=== PATIENT | female | born 1945 | race Caucasian/White ===

== ENCOUNTER → 2018-02-19 08:27 | Outpatient (CLI) | payer MEDICARE, OTHER, SELFPAY | PROVIDERS: Family Provider Internal Medicine; PCP Internal Medicine; Visit Provider Internal Medicine | DX: M54.9 Dorsalgia, unspecified (principal); G89.29 Other chronic pain; M25.552 Pain in left hip; Z85.038 Personal history of other malignant neoplasm of large intestine ==

== ENCOUNTER → 2018-02-20 10:22 | Outpatient (CLI) | payer MEDICARE, OTHER, SELFPAY ==
--- NOTE | 2018-02-20 10:28 | RAD_ITS ---
STUDY: X-RAY - LUMBAR SPINE REASON FOR EXAM: Female, 73 years old. TECHNIQUE: 5 view(s) of the lumbar spine were obtained. COMPARISON: None FINDINGS: Normal lumbar lordosis. There is a levoscoliosis of the lumbar spine. There is a normal alignment of the vertebrae. There is diffuse demineralization with multi-level endplate spondylosis. There is multi-level degenerative disc disease with multi-level disc space narrowing. There is a new compression fracture of T12. There is an old compression fracture of L1. There is atherosclerotic calcification of the abdominal aorta without a demonstrated aneurysm. RAD/L/S Spine Min 4 Views IMPRESSION: Degenerative changes of the spine, as detailed above. There is a new compression fracture of T12. Electronically Signed: Joel Gardner MD at 10:45 EDT Tel , Service support ,
--- NOTE | 2018-02-20 10:29 | RAD_ITS ---
STUDY: X-RAY - PELVIS AND LEFT HIP REASON FOR EXAM: Female, 73 years old. PAIN X1.5 YRS S/P FALLING DOWN STAIRS TECHNIQUE: Radiological exam, hip, unilateral, with pelvis when performed; 2 or 3 views. COMPARISON: None. FINDINGS: There is a non-specific bowel gas pattern. Normal visualized soft tissue structures. There is diffuse demineralization of the osseous structures. There is narrowing with cortical sclerosis and osteophyte formation of the sacroiliac joint consistent with degenerative osteoarthritic changes. Normal bilateral superior and inferior pubic rami. There are degenerative changes of the pubic symphysis with articular narrowing and sclerosis. Normal bilateral ischial tuberosities. There are osteoarthritic changes of the femoral head with marginal osteophyte formation. Normal acetabulum. There is severe articular joint space narrowing of the hip. RAD/Hip 2-3 Views with Pelvis IMPRESSION: There are degenerative changes and demineralization of the pelvis. Advanced degenerative arthrosis in the left hip. Electronically Signed: Joel Gardner MD at 10:52 EDT Tel , Service support ,
== END ==
PROVIDERS: Family Provider Internal Medicine; PCP Internal Medicine; Visit Provider Internal Medicine
DX: M54.9 Dorsalgia, unspecified (principal); G89.29 Other chronic pain; M25.552 Pain in left hip
CPT/HCPCS: 72110; 73502

== ENCOUNTER 2018-03-17 10:45 | Day surgery (SDC) | payer MEDICARE, OTHER, SELFPAY ==
[2018-03-17 11:09] VITALS: BP 158/83; PULSE 70; RESP 16; TEMP 36.4; O2SAT 98; BMI 23.7
--- NOTE | 2018-03-17 12:00 | RAD_ITS ---
CLINICAL HISTORY: Female, 73 years old. Back pain. PROCEDURE: KYPHOPLASTY - T12 Imaging provided for kyphoplasty of the T12 vertebrae. RAD/Thoracic Spine 2 Views IMPRESSION: Imaging provided for kyphoplasty of the T12 vertebrae. Electronically Signed: Tristen Bahena MD at 13:45 EDT Tel [phone], Service support ,
--- NOTE | 2018-03-17 12:00 | BON_PTH ---
PATIENT: GILL HUMMEL LOC: [facility] [place] U#:[id number] AGE/SX: 73/F ROOM: RE03/17/[address]: Dr. Bernardino Thompson MD : 1945 BED: DIS: 03/17/2018 SPEC #: [id number] RECD: 03/17/18 15:42 STATUS: RA FAINA #: [id number] GLORY: 03/17/18 12:[address]: Bernardino Thompson DEPT: SURGICAL PATHOLOGY RECD BY: Nelson Simmons ENTERED: 03/18/18 07:57 SP TYPE: Bone OTHR DR: Dr. America Torres DO Tissues: Vertebra, NOS Procedures: Decalcification bone/plaque Surgery Specimen Level V HEADER OPERATION: Kyphoplasty T12 PRE-OP DIAGNOSIS: Compression fracture T12 TISSUE SUBMITTED: Bone biopsy T12 MICROSCOPIC DIAGNOSIS T12 bone, core biopsy: Consistent with organizing fracture site. No evidence of malignancy. AM:blanquita 03/19/18 MICROSCOPIC DESCRIPTION Slides are reviewed. GROSS DESCRIPTION Received in fixative is one container labeled with the patient's name and designated bone biopsy T12. The specimen consists of an elongated piece of bone measuring 1 cm in length and 0.1 cm in diameter. The entire specimen is submitted in one cassette after decalcification. / SJ:blanquita 03/18/18 TC:5 CPT: 94512, 60809
[2018-03-17] MEDS: Cefazolin 2 GM in 0.9% Normal Saline 100 ML IV (12:10)
[2018-03-17] MEDS: Bupivacaine Mpf 0.5% 30 ML VIAL (12:16)
[2018-03-17 13:23] VITALS: BP 147/79; BP 158/83; PULSE 65; RESP 16; TEMP 36.8; O2SAT 96
[2018-03-17 13:30] VITALS: BP 158/83; BP 160/72; PULSE 65; RESP 16; O2SAT 97
[2018-03-17 13:35] VITALS: BP 158/83; BP 160/74; PULSE 65; RESP 16; O2SAT 96
[2018-03-17 13:40] VITALS: BP 158/83; BP 159/77; PULSE 65; RESP 16; TEMP 37.1; O2SAT 96
[2018-03-17 14:34] VITALS: BP 158/83
--- NOTE | 2018-03-17 16:18 | OP.PCM_ITS ---
Problem List (1) Compression fracture of body of thoracic vertebra Status: Acute Report of Operation Date of Procedure: 03/17/18 Pre-Operative Diagnosis: Compression fracture of T12, osteoporosis Post-Operative Diagnosis: Compression fracture of T12, osteoporosis Surgery/Procedure Performed:: Balloon kyphoplasty of T12, insertion of HV?R bone cement at T12, biopsy of T12, fluoroscopic guidance and interpretation Description of Surgical Findings:: PROCEDURES: 1. Darci balloon kyphoplasty at the T12 level 2. Insertion of [place] HV-R bone cement under low pressure at the T12 3. Bone biopsy at T12 4. Fluoroscopic guidance and interpretation of images PREOPERATIVE DIAGNOSES: Osteoporosis, compression fracture of T12 POSTOPERATIVE DIAGNOSES: Osteoporosis, compression fracture of T12 ANESTHESIA: MAC COMPLICATIONS: None BLOOD LOSS: Minimal PROCEDURE IN DETAIL: History and physical today was reviewed. Risks and benefits of procedure explained. The patient understood, agreed to procedure, informed consent was obtained. IV inserted per routine protocol. The patient was taken to the operating room, placed in the prone position with a pillow positioned underneath the chest. A 2 g of Ancef IV piggyback was infused per anesthesia. The upper and middle back area was prepped and draped in a sterile fashion using iodine x3. Under direct visualization with fluoroscopy with the C-arm, which brought into position on AP as well as lateral view at the T12 level., the T12 pedicle was then identified. In the view of the collapsed T12, a transpedicular approach to the vertebral body was appropriate. Starting on the left side at T12 level, an 11-gauge needle was advanced through the T12 pedicle through the junction of the pedicle and the vertebral body on the left side. Position was then confirmed on AP as well as lateral view. Following satisfactory placement of the needle to make sure it is further off the midline and interlaminar space. The stylet of the needle was then removed. A guide pen and then inserted through the 11-gauge trocar and advanced approximately 3 mm from the anterior cortex on the lateral view. AP and lateral images were then taken to verify position and trajectory of the needle. The needle was then removed leaving the guide pen in place. The introducer was then placed over the guide pen and advanced through the pedicle. Once the guidewire was at the junction of the pedicle and the vertebral body, a lateral image was taken to ensure that the cannula was positioned approximately 1 cm past the vertebral body and a lateral image was then taken to ensure correct [id number] and through the cannula, a drill was then advanced into the vertebral body under fluoroscopic guidance towards the anterior cortex creating a channel. The anterior cortex were then probed with guide pen to ensure no perforation in the anterior cortex. After completion of the entry into the vertebral body, a 30 mL inflatable bone tamp was then inserted through the cannula and advanced under direct fluoroscopic guidance into the vertebral body near the anterior cortex., The biopsy was then taken at the T12 level. After completion of the entry into the vertebral body, a balloon tamp utilizing radiopaque marker bands on the bone tamp were identified using AP and lateral images. Once bone tamps were in position, they were inflated to approximately 2 mL and making sure that the pressure is not passing 250 psi. Expansion of the bone tamp was then done sequentially in an increments of 0.25 to 0.5 mL of contrast with a careful attention was being paid to the inflation pressure and the balloon position. The inflation was then monitored on AP and lateral view images. The final balloon volume was 2.2 mL on the left side at T12 level. There was no breach of the lateral wall or the anterior cortex of the vertebral body. Direct reduction of the fracture was then achieved. Endplate movement was then noticed and approximately 4 mm of the height synagogue was achieved at T12 . Under fluoroscopic imaging and a bone void filler, internal fixation was achieved through a low pressure injection of a Darci HV-R bone cement. The cavity was then filled with a total volume of 4.2 mL on the left side at T12. Once the bone cement had hardened, the cannula was then removed. Once the cannula was removed and satisfactory hemostasis was maintained, the incision as then closed with a 4-0 Vicryl at the skin. The patient was kept in the prone position for approximately 10 minutes post-cement injection the patient was then turned into supine position, monitored briefly and returned to PACU. The patient was moving both of her lower extremities at the same time without any apparent neurological deficits. Throughout the procedure, there were no intraoperative complications. ESTIMATED BLOOD LOSS: Minimal less than 10 mL ASSESSMENT AND PLAN: This is a 73-year-old Female with compression fracture at T12, osteoporosis, status post [place] balloon kyphoplasty at T12 and insertion of [place] HV-R bone cement under low pressure at T12 and bone biopsy at T12. The patient will continue her current medication. The patient will follow-up in approximately 1 week for re-evaluation. Motor as well as sensory exam was unchanged from prior to procedure.
== END 2018-03-17 14:35 | disposition home or self-care (01) ==
LOC: SDC 10:45 → AC 10:46
PROVIDERS: Family Provider Internal Medicine; PCP Internal Medicine; Visit Provider Anesthesiology Pain Medicine
PROC: (CPT 22513; principal; 2018-03-17 11:45)
DX: M48.54XA Collapsed vertebra, not elsewhere classified, thoracic region, initial encounter for fracture (principal); M81.0 Age-related osteoporosis without current pathological fracture; M47.817 Spondylosis without myelopathy or radiculopathy, lumbosacral region; M43.07 Spondylolysis, lumbosacral region; M54.17 Radiculopathy, lumbosacral region; M51.37 Other intervertebral disc degeneration, lumbosacral region; M48.07 Spinal stenosis, lumbosacral region; M46.96 Unspecified inflammatory spondylopathy, lumbar region; M79.1 Myalgia; Z79.891 Long term (current) use of opiate analgesic; K21.9 Gastro-esophageal reflux disease without esophagitis; I10 Essential (primary) hypertension; I25.10 Atherosclerotic heart disease of native coronary artery without angina pectoris; E78.2 Mixed hyperlipidemia; Z79.82 Long term (current) use of aspirin; Z85.038 Personal history of other malignant neoplasm of large intestine; F41.9 Anxiety disorder, unspecified; F32.9 Major depressive disorder, single episode, unspecified; G20 Parkinson's disease
CPT/HCPCS: 22513; 72070; 76000; 88305; 88307; 88311; J7120

== ENCOUNTER → 2018-05-05 15:36 | Outpatient (CLI) | payer MEDICARE, OTHER, SELFPAY ==
--- NOTE | 2018-05-05 15:36 | DT_ITS ---
This patient was seen during an EMR downtime May 05, 2018 - May 12, 2018. This patient may have a combination of paper and electronic documentation or all paper documentation. All documentation is viewable within the e-chart portion of [facility] for each patient visit.
--- NOTE | 2018-05-05 16:00 | MRI_ITS ---
STUDY: MRI LUMBAR SPINE WITHOUT CONTRAST REASON FOR EXAM: Female, 73 years old. Back pain radiating to left lower extremity TECHNIQUE: Standardized fat and water weighted pulse sequences were obtained in the sagittal and axial planes. COMPARISON: August 19, 2015 FINDINGS: Old compression fracture of T12 status post kyphoplasty. Mild chronic wedging of T11. T12-L1: Normal endplates. Normal disc height, hydration and morphology. Normal bilateral facet joints. Normal central canal and bilateral lateral recesses. Normal bilateral intervertebral neural foramina. Normal lumbar lordosis. There is no substantial scoliosis. Normal conus medullaris that terminates at T12-L1 L1-2: Endplate spurring.. Normal disc height, desiccation and minor annular bulge.. Normal bilateral facet joints. Normal central canal and bilateral lateral recesses. Normal bilateral intervertebral neural foramina. L2-3: Mild endplate spurring.. Normal disc height, desiccation and mild annular bulge with small bilateral posterolateral/foraminal disc protrusions.. Normal bilateral facet joints. Normal central canal. Mild to moderate bilateral recess and neuroforaminal stenosis L3-4: Mild endplate spurring.. Normal disc height, desiccation and mild annular bulge.. Facet arthropathy and mild thickening of ligamenta flava slightly more pronounced on the left. Normal central canal. Mild right lateral recess and neuroforaminal encroachment with moderate narrowing on the left. L4-5: Normal endplates. Normal disc height, desiccation and minor annular bulge with small left posterolateral/foraminal disc protrusion. Mild facet arthropathy and thickening of ligamenta flava.. Normal central canal. Mild right lateral recess and neuroforaminal encroachment with moderate narrowing on the left. L5-S1: Normal endplates. Normal disc height, desiccation and minor bulging disc osteophyte complex.. Bilateral facet arthropathy.. Normal central canal moderate bilateral recess and neuroforaminal stenosis exaggerated by shortened pedicles Normal visualized sacral ala. Multiple small bilateral renal cysts. Normal visualized paraspinous soft tissue structures. There has been interval progression of the degenerative changes since prior study. The old compression fracture of T12 and kyphoplasty are new findings MRI/Spine Lumbar (Routine) IMPRESSION: Multilevel spinal stenosis secondary to disc disease and bony hypertrophy most severe on the left at L3-4 and L4-5. Findings as above Electronically Signed: Bernardino Orozco MD at 23:00 EDT , Service support ,
== END ==
PROVIDERS: Family Provider Internal Medicine; PCP Internal Medicine; Visit Provider Anesthesiology Pain Medicine
DX: M48.07 Spinal stenosis, lumbosacral region (principal); M51.37 Other intervertebral disc degeneration, lumbosacral region; M89.38 Hypertrophy of bone, other site; M25.552 Pain in left hip
CPT/HCPCS: 72148

== ENCOUNTER 2018-10-07 08:30 | Inpatient (IN) | payer MEDICARE, OTHER, SELFPAY ==
[2018-09-23 11:19] VITALS: BP 131/68; PULSE 60; RESP 16; TEMP 36.1; O2SAT 95; BMI 23.8
[2018-09-23 12:36] LABS: Absolute Lymphocyte Count 1.14 X10^3/ul (0.83-4.51); Basophil# 0.03 X10^3/uL; Basophil% 0.6 % (0-1); Eosinophil# 0.07 X10^3/uL; Eosinophils% 1.5 % (0-5); Hematocrit 46.2 % (37-47); Hemoglobin 14.8 g/dl (12.0-15.0); Lymphocyte # 1.14 X10^3/ul (4.0); Lymphocyte % 24.7 % (19-41); Mean Corpuscular Hgb 30.3 pg (27.0-32.0); Mean Corpuscular Volume 94.5 fL (81-99); Mean Platelet Vol. 10.5 fl (6.2-12.0); Monocyte# 0.32 X10^3/uL; Monocyte% 6.9 % (0-10); Neutrophil # 3.03 X10^3/uL (2.7-7.7); Neutrophil % 65.7 % (47-70); POSITIVE COUNT NO; POSITIVE DIFFERENTIAL NO; POSITIVE MORPHOLOGY NO; Platelet Count 180 K/mm3 (150-450); RBC Distribution Width SD 50.9 fl (35.1-43.9); Red Blood Count 4.89 M/mm3 (4.2-5.4); White Blood Count 4.6 K/mm3 (4.4-11.0)
[2018-09-23 12:58] LABS: Anion Gap 9 (5-15); BUN 26 mg/dL (7-18); BUN/Creat Ratio 27.7 RATIO (10-20); Calcium,Total 9.2 mg/dL (8.5-10.1); Chloride 106 mmol/L (98-107); Creatinine, Serum 0.94 mg/dL (0.55-1.02); EST Glomerular Filtration Rate 62 mL/min (>60); Est Glom Filt Rate - Afr Amer 75 mL/min (>60); Estimated Creatinine Clearance 46.53 ml/min; Glucose 109 mg/dL (74-106); Potassium 3.8 mmol/L (3.5-5.1); Sodium Level 142 mmol/L (136-145)
[2018-09-23 13:48] LABS: AST(SGOT) 55 U/L (15-37); Alanine Aminotransfer ALT/SGPT 13 U/L (13-56); Albumin, Serum 3.5 g/dL (3.2-5.0); Alkaline Phosphatase 132 U/L (45-117); Bilirubin, Direct 0.09 mg/dL (0.00-0.30); Globulin 3.1 g/dL (2.2-4.2); Protein, Total 6.6 g/dL (6.4-8.2)
--- NOTE | 2018-09-23 19:36 | PCM.HP.BLA ---
History and Physical DATE OF SURGERY: 10/07/2018 SCHEDULED PROCEDURE: Left Total Hip Arthroplasty HISTORY OF PRESENT ILLNESS: This is a 73-year-old female who has been having ongoing left hip pain for over 3 years. Patient's pain is constant and sharp. She has increased pain going up and down stairs and sitting for extended periods of time. Laying down temporarily alleviates pain. Patient states she has difficult time with activities of daily living including showering, doing housework, shopping. Patient does have history of chronic low back pain in which she sees Dr. Ragsdale at [facility]. Patient states the pain does awaken her at night. Patient states she has fallen secondary to her left hip pain. She feels unsafe walking up and down stairs. Patient has tried conservative measures consisting of rest, ice, elevation with minimal relief. She provides some relief. Patient has been to a chiropractor with no relief in symptoms. Patient has been to pain management with epidural injections with some relief of groin pain. She has tried [id number] medications with no relief. Patient denies previous surgery on the left hip. Patient has used [place] with some relief in pain. Patient has a medical history pertinent for hypertension, Parkinson's disease, as well as previous heart stents 6 years ago. Patient sees veterinarian laboratory animal care Dr. Espinosa. Patient also sees a neurologist Dr. Morrow for chronic headaches/migraines. She has been on Oakland for these headaches as well as Botox treatments. Patient currently denies any chest pain, shortness of breath, fevers chills, or recent infections. After failing conservative measures and discussing all treatment options with Dr. Leland Hedrick, the patient would like to proceed with a left total hip arthroplasty. We are obtaining surgical clearance from patient's primary care physician as well as veterinarian laboratory animal care. REVIEW OF SYSTEMS: ROS: Const: Denies anorexia, change in appetite, fever, hard of hearing, vision problems and weight change. CV: Denies chest pain, heart murmur, irregular heartbeat and peripheral vascular disease. Resp: Reports cough, but denies asthma, pneumonia, sleep apnea, SOB, tuberculosis and wheezing. GI: Reports nausea, but denies constipation, diarrhea, difficulty swallowing, heartburn, bloody stools and vomiting. : Urinary: denies incontinence. Musculo: Reports weakness, but denies leg swelling, limp and trouble walking. Skin: Denies Raynaud's, history of shingles and tattoo. Neuro: Reports tremor but denies ambulatory dysfunction, dizziness and numbness/tingling. Psych: Reports stress, but denies anxiety, depression, insomnia and mental illness. Art/Lymph: Denies anemia, bleeding/bruising tendency and past transfusion. Reviewed and updated. PAST MEDICAL HISTORY: Advance Care Plan: Other Directive, LIVING WILL Effective Date: 04/13/2015 Other Directive, POA Effective Date: 04/13/2015 PMH: Medical Problems: High Blood Pressure, Hypercholesterolemia, Heart Disease, Migraines Cancer - COLON Parkinson's Disease Accidents: Back Injury - (01/2014) FELL INTO DRESSER Surgical Hx: Hysterectomy, Gallbladder, Appendectomy, Bilateral Lumps Removed From Breast, Stents X4, Cataracts Colon Resection - (2014) [facility] Anesthesia Complications: None Assistive Devices: Dentures, Glasses Reviewed, no changes. SOCIAL HISTORY: SH: Marital: .Occupation: Retired.Work Status: Retired.Hand Dominance: Right-handed. Personal Habits: Cigarette Use: Never Smoked Cigarettes.Alcohol: Denies use.Drug Use: Denies Use.Enjoy Exercising: Never Exercises. Reviewed, no changes. VITALS: Ht: 65 Wt: 142lb 6oz Wt k.581 BMI: 23.7 BP: 140/89 Pulse: 77 T: 95.9 T: 35.5C ALLERGIES: Percocet Stadol Imitrex Nubain Lipitor MEDICATIONS: Aspirin 325 mg 1 po qd, Prozac 40 mg 2 PO qdaily, [place] 5-325 mg 1-2 by mouth every 6 hour as needed pain, Melatonin 5 mg 1 cap prn, Carbidopa-Levodopa 25-100 mg 1 tab PO daily, Cyproheptadine HCL 4 mg prn qhs, Metoprolol Succinate ER 50 mg 1po qday, Pravastatin Sodium 80 mg 1po qday, Lisinopril 20 mg 1po qday, Compazine as needed, Bupropion HCL ER (XL) 300 mg 1 by mouth every day PRE-OP EXAM: General appearance:NORMAL Other: Eyes: Conjunctivae and lids: NORMAL Pupils: ERR Ears, Nose, Mouth, and Throat: NORMAL Other: Inspection of lips, teeth and gums: NORMAL Other: Neck: Examination of neck: no masses noted. Respiratory: Assessment of respiratory effort: NORMAL Other: Auscultation of lungs: clear to auscultation no wheezes, rhonchi or rales. Cardiovascular: Auscultation of heart: regular rate and rhythm, no murmurs, gallops or rubs. Exam of carotid arteries: NORMAL Other: Gastrointestinal: Exam of abdomen: soft, nontender, nondistended bowel sounds present. PHYSICAL EXAMINATION: Patient walks with an antalgic gait. Left hip is cool to touch without erythema. Left hip range of motion does reproduce pain. Flexion to 80, internal rotation 10, external rotation 25. Patient does have decreased strength with hip flexion. Sensation intact to light touch. Vascularly intact. IMAGING STUDIES: X-rays of the left hip reveal complete joint space narrowing, subchondral sclerosis, and osteophyte formation consistent with severe osteoarthritis. IMPRESSION: 1. Severe left hip osteoarthritis 2. Hypertension 3. Hypercholesterolemia 4. Previous heart stents x4 proximally 6 years ago 5. Migraines 6. Parkinson's disease 7. History of colon cancer with colon resection PLAN: Dr. Hedrick did discuss and review with the patient all treatment options including surgical versus nonsurgical options. Patient does wish to proceed with the above-stated procedure. Potential risks, benefits, and complications of the procedure were discussed in detail including but not limited to , infection, nerve and blood vessel damage, persistent pain, numbness, tingling, paresthesias, blood clot, pulmonary embolism, and requirement for possible further surgery. The patient expressed full understanding and has no further questions for the doctor. Patient does agree to proceed with the above-stated procedure and has signed the surgery consent form. ___ I have re-examined the patient. There are no clinical changes since date of exam. ___ See progress notes for changes. ___ Dictated on admission Date: Time: Signature:
--- NOTE | 2018-10-02 10:58 | CASEMGMT ---
CALLED AND SPOKE WITH PATIENT'S , PATIENT WAS IN BED, REGARDING DISCHARGE NEEDS AFTER UPCOMING SURGERY. PER , PATIENT PLANS TO RETURN HOME AND HE WILL ASSIST WITH CARE. OUTPATIENT PHYSICAL THERAPY IS SET UP AT [facility], WILL ASSIST WITH TRANSPORT. PATIENT HAS A WALKER, SHOWER SEAT, GRAB BARS IN THE SHOWER, AND TOILET RISER. THERE IS A BED/BATHROOM ON THE 1ST LEVEL OF THE HOME. THERE ARE 2 STEPS INTO HOME FROM GARAGE AND THERE IS A HANDRAIL TO ASSIST WITH GETTING UP STAIRS. PER SHES A FALL HAZARD, SHE FELL TWICE THIS WEEKEND. ENCOURAGED TO INFORM STAFF UPON ARRIVAL TO [facility]. INFORMED THAT RN-CM WILL LIKELY FOLLOW UP AFTER SURGERY WITH PATIENT. TAISHA FOREMAN LPN CLINICAL SUPPORT
[2018-10-07] VITALS (13 sets, daily range): BP systolic 122–182; BP diastolic 61–93; PULSE 57–88; RESP 14–18; TEMP 36.1–37.2; O2SAT 63–99; BMI 23.8
--- NOTE | 2018-10-07 07:33 | RAD_ITS ---
STUDY: X-RAY - PELVIS AND LEFT HIP REASON FOR EXAM: Female, 73 years old. Total hip replacement. TECHNIQUE: Radiological exam, hip, unilateral, with pelvis when performed; 2 or 3 views. COMPARISON: None. FINDINGS: The patient is status post left total hip preplacement. There is good alignment. Postoperative soft tissue changes. Moderate osteoarthritis of the right hip joint. Narrowing and sclerosis of the symphysis pubis. RAD/Hip Min 2 Views (Portable) IMPRESSION: Status post left total hip replacement. There is good alignment. Electronically Signed: Tristen Bahena MD at 16:06 EST Tel [phone], Service support ,
[2018-10-07] MEDS: Acetaminophen 500 MG Tablet 1000 MG PO ×2 (09:22→21:23)
[2018-10-07 09:33] LABS: International Normalized Ratio 0.9; Partial Thromboplast Time 24.1 Seconds (24.1-36.2); Prothrombin Time (Protime)PT. 12.5 SECONDS (11.7-14.9)
[2018-10-07] MEDS: Lactated Ringers 1,000 ML 999 ML IV (09:35)
[2018-10-07] MEDS: Cefazolin 2 GM in 0.9% Normal Saline 100 ML IV (10:39)
--- NOTE | 2018-10-07 10:40 | RAD_ITS ---
STUDY: X-RAY - PELVIS AND LEFT HIP REASON FOR EXAM: Female, 73 years old. Left anterior hip replacement. TECHNIQUE: Radiological exam, hip, unilateral, with pelvis when performed; 1 view COMPARISON: None. FINDINGS: Intraoperative imaging provided for left anterior hip replacement. There is good alignment. RAD/Hip 1 view with Pelvis IMPRESSION: Intraoperative imaging provided for left anterior hip replacement. Electronically Signed: Tristen Bahena MD at 15:51 EST Tel [phone], Service support ,
--- NOTE | 2018-10-07 11:58 | PCM.OPRPT ---
Report of Operation Date of Procedure: 10/07/18 Pre-Operative Diagnosis: Left hip primary osteoarthritis Post-Operative Diagnosis: Left hip primary osteoarthritis Surgery/Procedure Performed:: Left direct anterior total hip replacement Description of Surgical Findings:: Stable hip with equal leg lengths housing installer: Parker Oliveira Type of Anesthesia:: Spinal Anesthesiologist: Giovany Bates Special Medications: 2 g Ancef, 1 g TXA at incision, 1 g TXA closure, 10 mg Decadron, joint cocktail (5 mg Duramorph, 30 mL of 0.5% Ropivicaine, 1000 units of epinephrine) Specimen's removed: Bony cuts Estimated Blood Loss (mL): 150 mL Fluids Replaced: 1200 mL crystalloid Description of Procedure: Components used: 1. Accolade 2 Darci femoral stem size 4 127? 2. Darci trident 2 acetabular shell size 48 mm 3. Darci X3 polyethylene D 4. [place] Biolox delta 36mm, 0mm femoral head Brief history operative indications: 73 yo F who failed conservative measures for their hip osteoarthritis. X-rays were consistent with osteoarthritis including joint space narrowing, osteophyte formation and subchondral cysts. Total hip replacement was discussed with the patient with risks and benefits including but not limited to blood loss, DVTs, PEs, neurovascular damage, dislocation, general risks of anesthesia including loss of life. Patient demonstrated an understanding medical clearance is obtained the patient was consented for surgery. Procedure: On the date of procedure the patient's L hip was marked in the preoperative area. Patient was then taken back to the operating room where anesthesia assumed control of the C-spine and airway and administered anesthetic. Patient was transferred to the operating table and placed in the supine position. The hips were placed at the break of the bed and a sacral bump was placed. The L lower extremity was then prepped out in a sterile fashion using chlorhexidine while the surgeon scrubbed. The PA was vital in the positioning of the patient. Upon reentering the room the L lower extremity was draped in the standard orthopedic fashion and the incision was marked. A timeout was called and everyone agreed upon the side, the site, the procedure be performed, antibody given, and patient's identity. At this time incision was made through skin, subcutaneous tissue, and fat down to fascia. The fascia was then incised and the TFL was retracted laterally. A retractor was placed on the lateral border of the femoral neck. Attention was directed to the inferior portion of the approach and all crossing vessels were identified and appropriately coagulated. A retractor was then placed on the medial portion of the femoral neck. The anterior capsule was then cleared of all soft tissue and then H shaped capsulotomy was made. The retractors were then placed inside the capsule. The femoral neck was identified and a cleanup cut was made. At this time a power corkscrew was used to remove the femoral head. Attention was then turned toward the acetabulum where the soft tissues were appropriately retracted and the acetabulum was sequentially reamed to 48 mm. A 48 mm cup was then selected and impacted into place. Acetabular liner was impacted into place and locking mechanism was verified. The position of the acetabular cup was then verified under live fluoroscopy. Attention was then turned to the femur. Soft tissue releases on the medial and lateral femoral neck were appropriately done, the leg was externally rotated and lateralized. A Asif retractor was placed medially and proximally to the greater trochanter this allowed appropriate visualization and exposure of the femoral canal. Rongeour was then used to remove excess lateral bone. A canal finder and entry broach were used to open the proximal canal. Once we verified we were down the femoral canal we subsequently broached up to a size 4 femur. The appropriate neck was placed in the previously selected head was trialed with a 0 mm neck. Traction was pulled and the hip was reduced with internal rotation. Once it was appropriately reduced and stability was checked. There was minimal shuck, equal leg lengths and appropriate stability with hyperextension and external rotation as well as with 90? flexion and internal rotation. Fluoroscopy was then also used to verify the position of the components and leg lengths using the contralateral side for comparison. The trial components were then dislocated the proximal femur was again exposed and the components were removed from the wound. The final components were verified and opened. The wound was copiously irrigated out with normal saline. The acetabulum was checked for any residual debris. The final components were placed and impacted. Traction and internal rotation were again used to reduce the hip. After adequate reduction the hip remained stable with appropriate leg lengths. The final components were once again checked with live fluoroscopy and were found to be satisfactory. The wound was then copiously irrigated with normal saline once more, and hemostasis was obtained. Closure was then done using #1 Vicryl runner to close the fascia. A 2-0 vicryl interuppted sutures were used to close the subcutaneous skin. A 3-0 Monocryl and Steri-Strips were used for final skin closure. A Silverlon dressing was placed. Patient was awakened by anesthesia and transferred to the [facility]. Patient was then transferred to the PACU for recovery. Postoperative plan: Patient will get 24 hours postop antibiotics. Patient will get in-house physical therapy and will be weight-bear as tolerated. Patient will follow up in office in 2 weeks for a wound check and x-rays. During the course of the procedure the physician certified pharmacist assistant played a vital role. His intimate knowledge of my steps in the procedure aided in safe and expedient completion of the procedure. The PA played a vital rolls in positioning particularly in obtaining the appropriate positioning of the sacral bump. The PA was also vital in the retraction of soft tissues during the exposure and especially the femoral work as this is a vital part of the procedure to prevent complications and fractures. The PA was also vital and protecting soft tissues during times of bony cuts and reaming. He also played a vital role in closure with my direct supervision. The PA was also important during reduction and dislocation of the joint and trials intraoperatively. Grafts/Implants Used: [place] Accolade 2 stem, trident 2 cup - Complications None - Admit VTE Documentation VTE Present on Admission: No VTE Mechan Device Prophylaxis: SCD's, Thigh High LUIS Hose VTE Pharm Prophylaxis ordered?: Yes
--- NOTE | 2018-10-07 12:01 | OP.PCM_ITS ---
Report of Operation Date of Procedure: 10/07/18 Pre-Operative Diagnosis: Left hip primary osteoarthritis Post-Operative Diagnosis: Left hip primary osteoarthritis Surgery/Procedure Performed:: Left direct anterior total hip replacement Description of Surgical Findings:: Stable hip with equal leg lengths citrix consultant: Parker Oliveira Type of Anesthesia:: Spinal Anesthesiologist: Giovany Bates Special Medications: 2 g Ancef, 1 g TXA at incision, 1 g TXA closure, 10 mg Decadron, joint cocktail (5 mg Duramorph, 30 mL of 0.5% Ropivicaine, 1000 units of epinephrine) Specimen's removed: Bony cuts Estimated Blood Loss (mL): 150 mL Fluids Replaced: 1200 mL crystalloid Description of Procedure: Components used: 1. Accolade 2 Darci femoral stem size 4 127? 2. Darci trident 2 acetabular shell size 48 mm 3. Darci X3 polyethylene D 4. [employer] Biolox delta 36mm, 0mm femoral head Brief history operative indications: 73 yo F who failed conservative measures for their hip osteoarthritis. X-rays were consistent with osteoarthritis including joint space narrowing, osteophyte formation and subchondral cysts. Total hip replacement was discussed with the patient with risks and benefits including but not limited to blood loss, DVTs, P Es, neurovascular damage, dislocation, general risks of anesthesia including loss of life. Patient demonstrated an understanding medical clearance is obtained the patient was consented for surgery. Procedure: On the date of procedure the patient's L hip was marked in the preoperative area. Patient was then taken back to the operating room where anesthesia assumed control of the C-spine and airway and administered anesthetic. Patient was transferred to the operating table and placed in the supine position. The hips were placed at the break of the bed and a sacral bump was placed. The L lo wer extremity was then prepped out in a sterile fashion using chlorhexidine while the surgeon scrubbed. The PA was vital in the positioning of the patient. Upon reentering the room the L lower extremity was draped in the standard orthopedic fashion and the incision was marked. A timeout was called and everyone agreed upon the side, the site, the procedure be performed, antibody given, and patient's identity. At this time incision was made through skin, subcutaneous tissue, and fat down to fascia. The fascia was then incised and the TFL was retracted laterally. A retractor was placed on the lateral border of the femoral neck. Attention was directed to the inferior portion of the approach and all crossing vessels were identified and appropriately coagulated. A retractor was then placed on the medial portion of the femoral neck. The anterior capsule was then cleared of all soft tissue and then H shaped capsulotomy was made. The retractors were then placed inside the capsule. The femoral neck was identified and a cleanup cut was made. At this time a power corkscrew was used to remove the femoral head. Attention was then turned toward the acetabulum where the soft tissues were appropriately retracted and the acetabulum was sequentially reamed to 48 mm. A 48 mm cup was then selected and impacted into place. Acetabular liner was impacted into place and locking mechanism was verified. The position of the acetabular cup was then verified under live fluoroscopy. Attention was then turned to the femur. Soft tissue releases on the medial and lateral femoral neck were appropriately done, the leg was externally rotated and lateralized. A Asif retractor was placed medially and proximally to the greater trochanter this allowed appropriate visualization and exposure of the femoral canal. Rongeour was then used to remove excess lateral bone. A canal finder and entry broach were used to open the proximal canal. Once we verified we were down the femoral canal we subsequently broached up to a size 4 femur. The appropriate neck was placed in the previously selected head was trialed with a 0 mm neck. Traction was pulled and the hip was reduced with internal rotation. Once it was appropriately reduced and stability was checked. There was minimal shuck, equal leg lengths and appropriate stability with hyperextension and external rotation as well as with 90? flexion and internal rotation. Fluoroscopy was then also used to verify the position of the components and leg lengths using the contralateral side for comparison. The trial components were then dislocated the proximal femur was again exposed and the components were removed from the wound. The final components were verified and opened. The wound was copiously irrigated out with normal saline. The acetabulum was checked for any residual debris. The final components were placed and impacted. Traction and internal rotation were again used to reduce the hip. After adequate reduction the hip remained stable with appropriate leg lengths. The final components were once again checked with live fluoroscopy and were found to be satisfactory. The wound was then copiously irrigated with normal saline once more, and hemostasis was obtained. Closure was then done using #1 Vicryl runner to close the fascia. A 2-0 vicryl interuppted sutures were used to close the subcutaneous skin. A 3-0 Monocryl and Steri-Strips were used for final skin closure. A Silverlon dressing was placed. Patient was awakened by anesthesia and transferred to the [facility]. Patient was then transferred to the PACU for recovery. Postoperative plan: Patient will get 24 hours postop antibiotics. Patient will get in-house physical therapy and will be weight-bear as tolerated. Patient will follow up in office in 2 weeks for a wound check and x-rays. During the course of the procedure the physician assistant track coach played a vital role. His intimate knowledge of my steps in the procedure aided in safe and expedient completion of the procedure. The PA played a vital rolls in positioning particularly in obtaining the appropriate positioning of the sacral bump. The PA was also vital in the retraction of soft tissues during the exposure and especially the femoral work as this is a vital part of the procedure to prevent complications and fractures. The PA was also vital and protecting soft tissues during times of bony cuts and reaming. He also played a vital role in closure with my direct supervision. The PA was also important during reduction and dislocation of the joint and trials intraoperatively. Grafts/Implants Used: [employer] Accolade 2 stem, trident 2 cup - Complications None - Admit VTE Documentation VTE Present on Admission: No VTE Mechan Device Prophylaxis: SCD's, Thigh High LUIS Hose VTE Pharm Prophylaxis ordered?: Yes
[2018-10-07] MEDS: buPROPion (XL) 300 MG TABLET.XL PO (14:30)
[2018-10-07] MEDS: FLUoxetine 20 MG Capsule 80 MG PO (14:30)
[2018-10-07] MEDS: Famotidine 20 MG Tablet PO (14:31)
[2018-10-07] MEDS: Lactated Ringers 1,000 ML 125 ML IV ×2 (14:31→22:00)
[2018-10-07] MEDS: Scopolamine 1mg/72hr Patch 1 PATCH TD (14:34)
[2018-10-07] MEDS: Morphine 2 MG/ML Syringe IV ×3 (14:45→19:42)
--- NOTE | 2018-10-07 14:57 | PCM.PROGNOTE ---
Subjective: 73 year old female with pmhx colon ca s/p right hemicolectomy 2015, cad with 4x prior stents 10 years ago, GERD, HLD, HTN, migraines, Parkinsons, who underwent left total hip today with Dr. Hedrick. She is recovering well from the surgery today. She is alert. She has had some nausea. She tolerated Jello so far without vomiting. She has no numbness or tingling. She has no SOB. She has a chronic dry cough she states is allergies. She has no CP. She lives with a . She has not ambulated yet. Pain is currently 7/10 aching. She also complains of a moderate frontotemporal left sided headache but she does not feel it is a migraine. - Physical Exam General: Alert, Oriented x3, Cooperative HEENT: Atraumatic, PERRLA, EOMI, Normocephalic Neck: Supple, No JVD, Negative Carotid Bruits Lungs: Clear to auscultation, Normal air movement Cardiovascular: Regular rate, Murmur - 2/6 systolic murmur best over LSB 2nd IC space. Abdomen: Bowel Sounds Present, Soft, Non Tender Extremities: No edema, Capillary Refill Less than 3 Seconds Skin: No rashes, No breakdown Musculoskeletal: No Tenderness to Palpation of Joints or Extremities, - - PMS intact. Neurological: Cranial nerves II-XII grossly intact Psych/Mental Status: Normal Affect, Appropriate, Alert and oriented to time, place, person, mood and affect Vital Signs Temp Pulse Resp BP Pulse Ox 98.1 F 57 L 18 156/72 H 95 10/07/18 13:53 10/07/18 13:53 10/07/18 13:53 10/07/18 13:53 10/07/18 13:53 Oxygen Delivery Method Room Air Weight: 143 lb 4.807 oz Body Mass Index (BMI) 23.8 Intake and Output for Last 24 Hours 10/05/18 10/06/18 10/07/18 23:59 23:59 23:59 Intake Total 1700 / 1700 Balance 1700 / 1700 Laboratory Tests Past 24 Hrs 10/07/18 09:05 PT 12.5 INR 0.9 APTT 24.1 Medical Necessity - Tobacco Use Smoking Status: Never smoker Assessment/Plan All Active Problems (Last Updated 05/20/18 @ 15:37 by Gale Villegas) Colon cancer (Resolved) Compression fracture of body of thoracic vertebra (Acute) 1. Osteoarthritis - s/p L total hip repair POD#[address] Hedrick - recovering well. Received tranexamic acid x2. Pt receiving ringers. Pain controlled. She has multiple pain medication allergies. Received perioperative cefazolin. 2. CAD with 4x stents - pt of Dr. Mccullough. Continue BB, arb, statin. Restart asa tomorrow. 3. HTN - mildly elevated. Trend. 4. Hx colorectal ca in remission s/p hemicolectomy 2014. 5. HLD - statin 6. Hx Migraine - currently with headache, she does not feel it is a migraine. tylenol as needed. avoid triptan for now. 7. Parkinson disease - continue sinemet. Will contribute significantly to recovery and ongoing debility. 8. Depression/anxiety - prozac, wellbutrin, xanax. Continue. Affect pleasant. DVT ppx: per ortho Thank you for the opportunity to participate in the care of this patient. This patient was seen by Selvin Weiner PA-C under the supervision of Dr. Carmona.
[2018-10-07] MEDS: oxyCODONE 5 MG Tablet PO ×2 (16:47→22:53)
[2018-10-07] MEDS: Cefazolin 1 GM/50 ML BAG IV (18:28)
[2018-10-07] MEDS: Carbidopa/Levodopa 25/100 Tablet PO (18:28)
[2018-10-07] MEDS: Metoprolol(XL)Succ 50 MG Tablet PO (18:29)
[2018-10-07] MEDS: Aspirin 81 MG TAB.CHEW PO (18:29)
[2018-10-07] MEDS: 0.9% NaCl Peripheral Flush Adult/Peds IV (19:42)
[2018-10-07] MEDS: MELATONIN 10 MG TABLET 5 MG PO (21:20)
[2018-10-07] MEDS: ALPRAZolam 0.25 MG Tablet PO (21:20)
[2018-10-07] MEDS: Senna/Docusate Sodium 1 Tablet 2 TABLET PO (21:22)
[2018-10-07] MEDS: Meloxicam 7.5 MG Tablet PO (21:22)
[2018-10-07] MEDS: Pravastatin 80 MG Tablet PO (21:22)
[2018-10-08] MEDS: Cefazolin 1 GM/50 ML BAG IV (02:13)
[2018-10-08 02:14] VITALS: BP 150/82; PULSE 68; RESP 16; TEMP 36.5; O2SAT 96
[2018-10-08] MEDS: oxyCODONE 5 MG Tablet PO ×3 (02:54→20:34)
[2018-10-08] MEDS: 0.9% NaCl Peripheral Flush Adult/Peds IV ×2 (02:54→14:43)
[2018-10-08] MEDS: Carbidopa/Levodopa 25/100 Tablet PO ×3 (06:22→16:23)
[2018-10-08] MEDS: Acetaminophen 500 MG Tablet 1000 MG PO ×3 (06:22→20:33)
[2018-10-08 06:30] LABS: Hematocrit 35.7 % (37-47); Hemoglobin 11.6 g/dl (12.0-15.0); Mean Corp Hgb Conc 32.5 g/gl (32-36); Mean Corpuscular Hgb 30.7 pg (27.0-32.0); Mean Corpuscular Volume 94.4 fL (81-99); Mean Platelet Vol. 10.6 fl (6.2-12.0); Platelet Count 139 K/mm3 (150-450); RBC Distribution Width CV 14.7 % (11.6-14.6); RBC Distribution Width SD 50.5 fl (35.1-43.9); Red Blood Count 3.78 M/mm3 (4.2-5.4); White Blood Count 5.8 K/mm3 (4.4-11.0)
[2018-10-08 06:31] LABS: Scan Indicated on CBC? Y/N NO
[2018-10-08 06:50] LABS: Anion Gap 9 (5-15); BUN 18 mg/dL (7-18); BUN/Creat Ratio 23.9 RATIO (10-20); Calcium,Total 8.6 mg/dL (8.5-10.1); Chloride 108 mmol/L (98-107); Creatinine, Serum 0.75 mg/dL (0.55-1.02); EST Glomerular Filtration Rate 80 mL/min (>60); Est Glom Filt Rate - Afr Amer 96 mL/min (>60); Estimated Creatinine Clearance 43.74 ml/min; Glucose 163 mg/dL (74-106); Potassium 4.2 mmol/L (3.5-5.1); Sodium Level 140 mmol/L (136-145)
--- NOTE | 2018-10-08 07:17 | PCM.PN.ORT ---
Subjective: The patient was sitting in bed upon examination. Patient denies any chest pain, shortness of breath, dizziness, lightheadedness, nausea or vomiting, or calf pain. Pain is controlled on medications. No adverse overnight events. Patient does report pain in her left hip. Objective: Vital signs stable and afebrile. Patient is able to plantarflex and dorsiflex actively. Sensation is intact to light touch to saphenous, sural, superficial and deep peroneal, and tibial distribution. Dressing is clean dry and intact. Negative Homans bilaterally, negative signs and symptoms of DVT. - Physical Exam General: Alert, Oriented x3, Cooperative, No apparent distress Vital Signs Temp Pulse Resp BP Pulse Ox 97.7 F L 68 16 150/82 H 96 10/08/18 02:14 10/08/18 02:14 10/08/18 02:14 10/08/18 02:14 10/08/18 02:14 Oxygen Delivery Method Room Air Weight: 65 kg Body Mass Index (BMI) 23.8 Intake and Output for Last 24 Hours 10/06/18 10/07/18 10/08/18 23:59 23:59 23:59 Intake Total 3537 / 3537 564 / 564 Output Total 1950 / 1950 300 / 300 Balance 1587 / 1587 264 / 264 Laboratory Tests Past 24 Hrs 10/07/18 10/08/18 10/08/18 09:05 05:42 05:42 WBC 5.8 RBC 3.78 L Hgb 11.6 L Hct 35.7 L MCV 94.4 MCH 30.7 MCHC 32.5 RDW 14.7 H RDW Differential 50.5 H Plt Count 139 L MPV 10.6 PT 12.5 INR 0.9 APTT 24.1 Sodium 140 Potassium 4.2 Chloride 108 H Carbon Dioxide 23.0 Anion Gap 9 BUN 18 Creatinine 0.75 Estim Creat Clear Calc 43.74 Est GFR (MDRD) Af Amer 96 Est GFR (MDRD) Non-Af 80 BUN/Creatinine Ratio 23.9 H Glucose 163 H Calcium 8.6 Medical Necessity - Tobacco Use Smoking Status: Never smoker Assessment/Plan All Active Problems (Last Updated 05/20/18 @ 15:37 by Gale Villegas) Colon cancer (Resolved) Compression fracture of body of thoracic vertebra (Acute) 1. S/P left direct anterior total hip arthroplasty POD #1 2. Continue Pain Medications: Tylenol and oxycodone 3. DVT Prophylaxis: Aspirin 81 mg twice daily with food for 4 weeks postoperatively 4. PT/OT: Weightbearing as tolerated 5. H & H: 11.6/35.7, asymptomatic 6. Encouraged Incentive Spirometry 7. Continue postoperative medical management per medicine 8. Disposition: Plan will be for possible discharge home tomorrow if pain is controlled and patient tolerates physical therapy.
[2018-10-08] MEDS: Aspirin 81 MG TAB.CHEW PO ×2 (08:36→16:23)
[2018-10-08 08:38] VITALS: BP 130/85; PULSE 63; RESP 16; TEMP 36.8; O2SAT 94
[2018-10-08] MEDS: Famotidine 20 MG Tablet PO (09:31)
[2018-10-08] MEDS: Meloxicam 7.5 MG Tablet PO ×2 (09:31→20:34)
[2018-10-08] MEDS: Senna/Docusate Sodium 1 Tablet 2 TABLET PO ×2 (09:31→20:34)
[2018-10-08] MEDS: FLUoxetine 20 MG Capsule 80 MG PO (09:31)
[2018-10-08 09:32] VITALS: PULSE 63
[2018-10-08] MEDS: Metoprolol(XL)Succ 50 MG Tablet PO (09:32)
[2018-10-08] MEDS: buPROPion (XL) 300 MG TABLET.XL PO (09:32)
[2018-10-08] MEDS: Lisinopril 20 MG Tablet PO (09:38)
--- NOTE | 2018-10-08 11:20 | CASEMGMT ---
RN MACEY Face to Face with patient for initial transition planning/care coordination assessment. RN CM introduced self and role at [facility]. Patient sitting in chair, alert and oriented, at bedside. Patient willing to participate in assessment and is able to answer all questions appropriately. Care providers, pharmacy, and demographics verified. Patient wishes to discharge home and is setup with [facility] for outpatient therapy. Patient states she has no further needs or concerns at this time. CM to follow for discharge planning needs that may arise. PCP: Brian Rangel Pharmacy: [facility] Insurance: Cruzito DIAZ Prescription Benefit: [employer] Living Will/HPOA: Yes, Jovanni Borrero LNOK: Living Arrangements: Patient lives with in 2 story house with bed and bath on first floor. Transportation: DME/C: Patient has walker, rollator, cane, raised toilet seat, grab bars, shower chair. Disposition Plan: Patient to discharge home with outpatient therapy, family support, and follow-up plans in place. Thania AUGUSTE, RN, CM
--- NOTE | 2018-10-08 11:47 | PCM.PROGNOTE ---
<Selvin Weiner - Last Filed: 10/08/18 11:47> Subjective: Pt up and ambulating well with PT and a walker this AM. Painful gait, otherwise pain controlled at rest. No SOB, or worsening of chronic cough. No abdominal pain, no nausea or vomiting. Tolerating PO intake. No RENE today. No numbness or tingling in LLE. - Physical Exam General: Alert, Oriented x3, Cooperative HEENT: Atraumatic, PERRLA, EOMI, Normocephalic Neck: Supple, No JVD, Negative Carotid Bruits Lungs: Clear to auscultation, Normal air movement Cardiovascular: Regular rate, No murmurs Abdomen: Bowel Sounds Present, Soft, Non Tender Extremities: No edema, Capillary Refill Less than 3 Seconds Skin: No rashes, No breakdown Musculoskeletal: No Tenderness to Palpation of Joints or Extremities Neurological: Cranial nerves II-XII grossly intact Psych/Mental Status: Normal Affect, Appropriate, Alert and oriented to time, place, person, mood and affect Vital Signs Temp Pulse Resp BP Pulse Ox 98.2 F 63 16 130/85 H 94 10/08/18 08:38 10/08/18 09:32 10/08/18 08:38 10/08/18 08:38 10/08/18 08:38 Oxygen Delivery Method Room Air Weight: 143 lb 4.807 oz Body Mass Index (BMI) 23.8 Intake and Output for Last 24 Hours 10/06/18 10/07/18 10/08/18 23:59 23:59 23:59 Intake Total 3537 / 3537 564 / 564 Output Total 1950 / 1950 300 / 300 Balance 1587 / 1587 264 / 264 Laboratory Tests Past 24 Hrs 10/08/18 10/08/18 05:42 05:42 WBC 5.8 RBC 3.78 L Hgb 11.6 L Hct 35.7 L MCV 94.4 MCH 30.7 MCHC 32.5 RDW 14.7 H RDW Differential 50.5 H Plt Count 139 L MPV 10.6 Sodium 140 Potassium 4.2 Chloride 108 H Carbon Dioxide 23.0 Anion Gap 9 BUN 18 Creatinine 0.75 Estim Creat Clear Calc 43.74 Est GFR (MDRD) Af Amer 96 Est GFR (MDRD) Non-Af 80 BUN/Creatinine Ratio 23.9 H Glucose 163 H Calcium 8.6 Medical Necessity - Tobacco Use Smoking Status: Never smoker Assessment/Plan All Active Problems (Last Updated 05/20/18 @ 15:37 by Gale Villegas) Colon cancer (Resolved) Compression fracture of body of thoracic vertebra (Acute) 1. Osteoarthritis - s/p L total hip repair POD#[address] Hedrick - recovering well. Received tranexamic acid x2. Pain controlled. She has multiple pain medication allergies. Received perioperative cefazolin. -Pt is now ambulatory. - post op anemia - h/h in AM. 2. CAD with 4x stents - pt of Dr. Mccullough. Continue BB, arb, statin, asa 3. HTN - restart mekhi-i and trend. 4. Hx colorectal ca in remission s/p hemicolectomy 2014. 5. HLD - statin 6. Hx Migraine - tylenol as needed. 7. Parkinson disease - continue sinemet. Will contribute significantly to recovery and ongoing debility. 8. Depression/anxiety - prozac, wellbutrin, xanax. Continue. Affect pleasant. 9. Post op anemia - recheck AM h/h. DVT ppx: per ortho - 81 asa bid. Thank you for the opportunity to participate in the care of this patient. This patient was seen by Selvin Weiner PA-C under the supervision of Dr. Bran <Abby Bran - Last Filed: 10/08/18 16:00> - Physical Exam Vital Signs Temp Pulse Resp BP Pulse Ox 97.9 F 63 16 121/64 H 92 10/08/18 14:27 10/08/18 14:27 10/08/18 14:27 10/08/18 14:27 10/08/18 14:27 Oxygen Delivery Method Room Air Weight: 143 lb 4.807 oz Body Mass Index (BMI) 23.8 Intake and Output for Last 24 Hours 10/06/18 10/07/18 10/08/18 23:59 23:59 23:59 Intake Total 3537 / 3537 564 / 564 Output Total 1950 / 1950 300 / 300 Balance 1587 / 1587 264 / 264 Laboratory Tests Past 24 Hrs 10/08/18 10/08/18 05:42 05:42 WBC 5.8 RBC 3.78 L Hgb 11.6 L Hct 35.7 L MCV 94.4 MCH 30.7 MCHC 32.5 RDW 14.7 H RDW Differential 50.5 H Plt Count 139 L MPV 10.6 Sodium 140 Potassium 4.2 Chloride 108 H Carbon Dioxide 23.0 Anion Gap 9 BUN 18 Creatinine 0.75 Estim Creat Clear Calc 43.74 Est GFR (MDRD) Af Amer 96 Est GFR (MDRD) Non-Af 80 BUN/Creatinine Ratio 23.9 H Glucose 163 H Calcium 8.6 Assessment/Plan Patient seen by Selvin Weiner PA-C under my supervision. Admitted for left total hip repair due to osteoarthritis. TOdya is POD 1. Patient seen and examined. She had no complaints and was tolerating PT well. She denied any fever, chills, cough or chest pain, shortness of breath, abdominal pain, diarrhea or vomiting. o/e: Vital Signs Height 5 ft 5 in Weight: 143 lb 4.807 oz Weight in Pounds 143.3 lbs Pulse Ox 92 Temperature 97.9 F Pulse Rate 63 Respiratory Rate 16 Blood Pressure 121/64 Blood Pressure Position Semi-Fowlers General: Alert, Oriented x3, Cooperative HEENT: Atraumatic, PERRLA, EOMI, Normocephalic Neck: Supple, No JVD, Negative Carotid Bruits Lungs: Clear to auscultation, Normal air movement Cardiovascular: Regular rate, No murmurs Abdomen: Bowel Sounds Present, Soft, Non Tender Extremities: No edema, Capillary Refill Less than 3 Seconds Skin: No rashes, No breakdown Musculoskeletal: No Tenderness to Palpation of Joints or Extremities Neurological: Cranial nerves II-XII grossly intact Psych/Mental Status: Normal Affect, Appropriate, Alert and oriented to time, place, person, mood and affect Plan is to continue with PT/OT. Pain management with tylenol and oxycodone. Per orthopedics, to have aspirin 81mg daily x 4 weeks postoperatively for DVT prophylaxis. Continue incentive spirometry. For likely discharge tomorrow. Agree with rest of Selvin Weiner PA-C's note, assessment and plan. Code Visit Inpatient E&M: 76497 Subs Hosp L2
[2018-10-08 14:27] VITALS: BP 121/64; PULSE 63; RESP 16; TEMP 36.6; O2SAT 92
[2018-10-08] MEDS: proCHLORPERazine 5 MG Tablet 10 MG PO (14:41)
[2018-10-08] MEDS: Morphine 2 MG/ML Syringe IV (14:43)
[2018-10-08 20:30] VITALS: BP 123/47; PULSE 65; RESP 16; TEMP 36.4; O2SAT 95
[2018-10-08] MEDS: MELATONIN 10 MG TABLET 5 MG PO (20:33)
[2018-10-08] MEDS: Pravastatin 80 MG Tablet PO (20:34)
[2018-10-09 02:30] VITALS: BP 145/66; PULSE 98; RESP 16; TEMP 36.6; O2SAT 96
[2018-10-09] MEDS: Acetaminophen 500 MG Tablet 1000 MG PO ×2 (04:50→14:22)
[2018-10-09] MEDS: oxyCODONE 5 MG Tablet PO ×3 (04:51→14:24)
[2018-10-09 06:19] LABS: Hematocrit 33.1 % (37-47); Hemoglobin 10.7 g/dl (12.0-15.0); Mean Corp Hgb Conc 32.3 g/gl (32-36); Mean Corpuscular Hgb 30.5 pg (27.0-32.0); Mean Corpuscular Volume 94.3 fL (81-99); Mean Platelet Vol. 10.5 fl (6.2-12.0); Platelet Count 115 K/mm3 (150-450); RBC Distribution Width CV 14.5 % (11.6-14.6); RBC Distribution Width SD 47.7 fl (35.1-43.9); Red Blood Count 3.51 M/mm3 (4.2-5.4); White Blood Count 4.7 K/mm3 (4.4-11.0)
[2018-10-09 06:34] LABS: Scan Indicated on CBC? Y/N NO
[2018-10-09] MEDS: Carbidopa/Levodopa 25/100 Tablet PO ×2 (06:37→11:36)
[2018-10-09] MEDS: Aspirin 81 MG TAB.CHEW PO (07:39)
[2018-10-09 07:48] VITALS: PULSE 68
[2018-10-09] MEDS: Senna/Docusate Sodium 1 Tablet 2 TABLET PO (07:48)
[2018-10-09] MEDS: Lisinopril 20 MG Tablet PO (07:48)
[2018-10-09] MEDS: buPROPion (XL) 300 MG TABLET.XL PO (07:48)
[2018-10-09] MEDS: Metoprolol(XL)Succ 50 MG Tablet PO (07:48)
[2018-10-09] MEDS: FLUoxetine 20 MG Capsule 80 MG PO (07:48)
[2018-10-09] MEDS: Meloxicam 7.5 MG Tablet PO (07:49)
[2018-10-09] MEDS: Famotidine 20 MG Tablet PO (07:49)
[2018-10-09 08:30] VITALS: BP 142/72; PULSE 68; RESP 16; TEMP 36.9; O2SAT 94
--- NOTE | 2018-10-09 09:01 | PN.ORTHO_ITS ---
Subjective: The patient was evaluated while participating in physical therapy. Patient denies any chest pain, shortness of breath, dizziness, lightheadedness, nausea or vomiting, or calf pain. Pain is controlled on medications. No adverse overnight events. Patient states she is ready for discharge home today. Objective: Vital signs stable and afebrile. Patient is able to plantarflex and dorsiflex actively. Sensation is intact to light touch to saphenous, sural, superficial and deep peroneal, and tibial distribution. Dressing is clean dry and intact. Negative Homans bilaterally, negative signs and symptoms of DVT. - Physical Exam General: Alert, Oriented x3, Cooperative, No apparent distress Vital Signs Temp Pulse Resp BP Pulse Ox 98.4 F 68 16 142/72 H 94 10/09/18 08:30 10/09/18 08:30 10/09/18 08:30 10/09/18 08:30 10/09/18 08:30 Oxygen Delivery Method Room Air Weight: 65 kg Body Mass Index (BMI) 23.8 Intake and Output for Last 24 Hours 10/07/18 10/08/18 10/09/18 23:59 23:59 23:59 Intake Total 3537 / 3537 564 / 564 780 / 780 Output Total 1950 / 1950 300 / 300 400 / 400 Balance 1587 / 1587 264 / 264 380 / 380 Laboratory Tests Past 24 Hrs 10/09/18 05:46 WBC 4.7 RBC 3.51 L Hgb 10.7 L Hct 33.1 L MCV 94.3 MCH 30.5 MCHC 32.3 RDW 14.5 RDW Differential 47.7 H Plt Count 115 L MPV 10.5 Medical Necessity - Tobacco Use Smoking Status: Never smoker Assessment/Plan All Active Problems (Last Updated 05/20/18 @ 15:37 by Gale Villegas) Colon cancer (Resolved) Compression fracture of body of thoracic vertebra (Acute) 1. S/P left direct anterior total hip arthroplasty POD #2 2. Continue Pain Medications: Tylenol and oxycodone 3. DVT Prophylaxis: Aspirin 81 mg twice daily with food for 4 weeks postoperatively 4. PT/OT: Weightbearing as tolerated 5. H & H: 10.7/33.1, asymptomatic 6. Encouraged Incentive Spirometry 7. Continue postoperative medical management per medicine 8. Disposition: Orthopedically stable, plan is for discharge home today. Prescriptions will be E scribed to [facility]. Patient will follow-up per postop instructions
--- NOTE | 2018-10-09 09:08 | PCM.DC.THR ---
Discharge Diet: No Restrictions Discharge Activity: May Not Drive - while taking narcotic pain medications. May shower in (days): 1 - only if incision is dry and without drainage. Do NOT soak/submerge in tub/pool/larios/stream/hot tub. Ice area for (Minutes): 20 - Every 1-2 hours while awake Weight Bearing Status: Weight bearing as tolerated Elevate: Operative Extremity Additional Activity Instructions:: Wear elastic stockings for 2 weeks. DO NOT use alcohol with narcotic pain medication. DO NOT make important decisions while taking narcotic medication. If you have problems with taking your medication (rash, itching, nausea, etc.) call the office at once. Call your doctor if your incision/area has: Increased Pain/ Swelling, Increased Redness, Foul Smelling Discharge Call your doctor if you observe: Fever of 101 or Higher Remove Dressing in (days):: 3 - Okay to remove dressing on October 12, 2018 Additional Instructions: Follow [facility] postop instructions Do not take [place] while on oxycodone. Allergies/Adverse Reactions: Allergies butorphanol tartrate [From Stadol] Allergy (Verified 09/23/18 11:03) Shortness of breath ketorolac tromethamine [From Toradol] Allergy (Verified 09/23/18 11:03) Shortness of breath nalbuphine HCl [From Nubain] Allergy (Verified 09/23/18 11:03) Shortness of breath sumatriptan [From Imitrex] Allergy (Verified 09/23/18 11:03) Shortness of breath sumatriptan succinate [From Imitrex] Allergy (Verified 09/23/18 11:03) Shortness of breath atorvastatin calcium [From Lipitor] Adverse Reaction (Verified 09/23/18 11:03) Other hurt all over head to toe Medications to take at Discharge Fluoxetine [Prozac] 80 mg PO DAILY 02/04/14 buPROPion XL [Wellbutrin Xl] 300 mg PO DAILY #0 tablet.xl 02/15/15 Metoprolol Tartrate [Lopressor (beta juan)] 50 mg PO DAILY 05/25/15 ALPRAZolam [Xanax] 0.25 mg PO BID PRN 06/20/15 Nitroglycerin [Nitrostat] 0.4 mg SUBLINGUAL Q5M PRN 03/12/18 Pravastatin [Pravachol] 80 mg PO QHS 03/12/18 Prochlorperazine Maleate [Compazine] 10 mg PO PRN PRN 03/12/18 Carbidopa/Levodopa 25/100 [Sinemet 25/100] 2 tab PO BID 05/20/18 Melatonin/Pyridoxine [Melatonin 5 mg Tablet] 1 each PO QHS 09/23/18 Lisinopril 20 mg PO DAILY 10/07/18 Acetaminophen [Tylenol] 1,000 mg PO Q8 #90 tablet 10/09/18 Aspirin [Aspirin, Baby] 81 mg PO BIDCM #60 tab.chew 10/09/18 Famotidine [Pepcid] 20 mg PO DAILY #30 tablet 10/09/18 Meloxicam [Mobic] 7.5 mg PO BID #30 tablet 10/09/18 Oxycodone [Oxyir] 5 - 10 mg PO Q4H PRN PRN 5 Days #60 tablet 10/09/18 Senna/Docusate Sodium [Senokot-S] 2 tablet PO BID #20 tablet 10/09/18 The following prescriptions were given: Oxycodone [Oxyir] 5 - 10 mg PO Q4H PRN PRN 5 Days #60 tablet PRN Reason: Mod-Severe Pain (4-09/10) Acetaminophen [Tylenol] 1,000 mg PO Q8 #90 tablet Famotidine [Pepcid] 20 mg PO DAILY #30 tablet Aspirin [Aspirin, Baby] 81 mg PO BIDCM #60 tab.chew Meloxicam [Mobic] 7.5 mg PO BID #30 tablet Senna/Docusate Sodium [Senokot-S] 2 tablet PO BID #20 tablet Primary Care Physician: America Torres DO [Primary Care Provider] - Test Results: Test results from this visit will be discussed in further detail at your follow-up appointment, if applicable. Please Follow Up With: [facility] When: 10/13/18 @ 1:30 pm Please Follow Up With: Parker Oliveira PA-C When: 10/20/18 @ 11:00 am
[2018-10-09] MEDS: 0.9% NaCl Peripheral Flush Adult/Peds IV (11:38)
[2018-10-09] MEDS: Morphine 2 MG/ML Syringe IV (11:39)
--- NOTE | 2018-10-09 13:23 | PCM.PN.HOSP ---
Subjective: Patient seen and examined. She was ambulating well with physical therapy. She complained of pain in her left hip after physical therapy. She denied any fever, chills, cough, chest pain, SOB, abdominal pain, diarrhea or vomiting. Review of systems is otherwise negative. Labs and vitals reviewed. Discussed with orthopedics PA, patient to be dced home with home PT/OT today. Vitals/I&O's: Vital Signs Temp Pulse Resp BP Pulse Ox 98.4 F 68 16 142/72 H 94 10/09/18 08:30 10/09/18 08:30 10/09/18 08:30 10/09/18 08:30 10/09/18 08:30 Oxygen Delivery Method Room Air Weight: 143 lb 4.807 oz Body Mass Index (BMI) 23.8 Intake and Output for Last 24 Hours 10/07/18 10/08/18 10/09/18 23:59 23:59 23:59 Intake Total 3537 / 3537 564 / 564 780 / 780 Output Total 1950 / 1950 300 / 300 400 / 400 Balance 1587 / 1587 264 / 264 380 / 380 General: Alert, Oriented x3, Cooperative, No apparent distress HEENT: Atraumatic, PERRLA, EOMI, Normocephalic Oral: Moist Mucosa Neck: Supple, No JVD, Negative Carotid Bruits Lungs: Clear to auscultation, Normal air movement, No rhonchi, No wheeze, No rales Cardiovascular: Regular rate, Regular Rhythm, Normal S1, Normal S2, No murmurs Abdomen: Bowel Sounds Present, Soft, Non Tender, Non-Distended, No Hepato-splenomegaly Extremities: No clubbing, No cyanosis, No edema, Capillary Refill Less than 3 Seconds Skin: No rashes, No breakdown Musculoskeletal: No Tenderness to Palpation of Joints or Extremities Lymphatic: No Cervical, Supraclavicular, or Inguinal Adenopathy Neurological: Cranial nerves II-XII grossly intact, Neuro grossly intact, Motor Exam 5/5 strength throughout Psych/Mental Status: Normal Affect, Appropriate, Alert and oriented to time, place, person, mood and affect Laboratory Results 10/09/18 05:46: WBC 4.7, RBC 3.51 L, Hgb 10.7 L, Hct 33.1 L, MCV 94.3, MCH 30.5, MCHC 32.3, RDW 14.5, RDW Differential 47.7 H, Plt Count 115 L, MPV 10.5 Current Medications Acetaminophen (Tylenol) 1,000 mg PO Q8 [facility] Last Admin: 10/09/18 04:50 Dose: 1,000 mg Alprazolam (Xanax) 0.25 mg PO BID PRN PRN Reason: ANXIETY Last Admin: 10/07/18 21:20 Dose: 0.25 mg Aspirin (Aspirin, Baby) 81 mg PO BIDCM [facility] Last Admin: 10/09/18 07:39 Dose: 81 mg Bupropion HCl (Wellbutrin Xl) 300 mg PO DAILY [facility] Last Admin: 10/09/18 07:48 Dose: 300 mg Carbidopa/Levodopa (Sinemet) 2 tablet PO TIDAC [facility] Last Admin: 10/09/18 11:36 Dose: 2 tablet Famotidine (Pepcid) 20 mg PO DAILY [facility] Last Admin: 10/09/18 07:49 Dose: 20 mg Fluoxetine HCl (Prozac) 80 mg PO DAILY [facility] Last Admin: 10/09/18 07:48 Dose: 80 mg Lisinopril (Zestril) 20 mg PO DAILY [facility] Last Admin: 10/09/18 07:48 Dose: 20 mg Melatonin (Melatonin) 5 mg PO QHS [facility] Last Admin: 10/08/18 20:33 Dose: 5 mg Meloxicam (Mobic) 7.5 mg PO BID [facility] Last Admin: 10/09/18 07:49 Dose: 7.5 mg Metoprolol Succinate (Toprol Xl (Beta Randy)) 50 mg PO DAILY [facility] Last Admin: 10/09/18 07:48 Dose: 50 mg Morphine Sulfate () 2 - 4 mg IV Q2H PRN PRN PRN Reason: SEVERE PAIN (6-10/10) Last Admin: 10/09/18 11:39 Dose: 2 mg Morphine Sulfate () 2 - 4 mg IV Q2H PRN PRN PRN Reason: SEVERE PAIN (6-10/10) Nitroglycerin (Nitrostat) 0.4 mg SUBLINGUAL Q5M PRN PRN Reason: Chest Pain Nutritional Formula (Lactose Free) (Ensure Clear) 120 ml PO TIDCM [facility] Last Admin: 10/09/18 11:40 Dose: Not Given Ondansetron HCl (Zofran) 4 mg IV Q8H PRN PRN PRN Reason: NAUSEA Oxycodone HCl (Oxyir) 5 - 10 mg PO Q4H PRN PRN PRN Reason: MOD-SEVERE PAIN (4-09/10) Last Admin: 10/09/18 09:49 Dose: 10 mg Pravastatin Sodium (Pravachol) 80 mg PO QHS [facility] Last Admin: 10/08/18 20:34 Dose: 80 mg Prochlorperazine Maleate (Compazine Tablet) 10 mg PO BID PRN PRN PRN Reason: NAUSEA Last Admin: 10/08/18 14:41 Dose: 10 mg Promethazine HCl (Phenergan) 12.5 mg IM Q6H PRN PRN; Protocol PRN Reason: NAUSEA/VOMITING Senna/Docusate Sodium (Senokot-S, Kari-Colace) 2 tablet PO BID [facility] Last Admin: 10/09/18 07:48 Dose: 2 tablet Sodium Chloride () 5 - 30 ml IV UD PRN PRN Reason: SALINE FLUSH Last Admin: 10/09/18 11:38 Dose: 10 ml Medical Necessity - Tobacco Use Smoking Status: Never smoker Assessment/Plan All Active Problems (Last Updated 05/20/18 @ 15:37 by Gale Villegas) Colon cancer (Resolved) Compression fracture of body of thoracic vertebra (Acute) 1. Osteoarthritis s/o left total hip replacement today is POD 2. Has no complaints. Has mild pain from PT/OT stable pain meds as per orthopedics 2. CAD s/p stents x 3: on aspirin, statin, metoprolol 3. Hypertension: fairly controlled for age. on metoprolol and lisinopril 4. History of colorectal cancer: s/p hemicolectomy in 2015. Stable and in remission 5. History of migraines: on tylenol prn 6. Parkinson's disease: on Sinemet 7. Depression: On Wellbutrin, Xanax and Prozac. 8. Anemia: likely due to acute blood loss from surgery. Hb today is 10.7, baseline is ~ 14.8- from 09/18. Will monitor DVT prophylaxis: Aspirin 81 mg twice daily as per orthopedics. Disposition: Discharge home today to follow-up with orthopedics and her primary care doctor. Code Visit Inpatient E&M: [id number] Subs Hosp L2
--- NOTE | 2018-10-09 13:29 | PN_ITS ---
Subjective: Patient seen and examined. She was ambulating well with physical therapy. She complained of pain in her left hip after physical therapy. She denied any fever, chills, cough, chest pain, SOB, abdominal pain, diarrhea or vomiting. Review of systems is otherwise negative. Labs and vitals reviewed. Discussed with orthopedics PA, patient to be dced home with home PT/OT today. Vitals/I&O's: Vital Signs Temp Pulse Resp BP Pulse Ox 98.4 F 68 16 142/72 H 94 10/09/18 08:30 10/09/18 08:30 10/09/18 08:30 10/09/18 08:30 10/09/18 08:30 Oxygen Delivery Method Room Air Weight: 143 lb 4.807 oz Body Mass Index (BMI) 23.8 Intake and Output for Last 24 Hours 10/07/18 10/08/18 10/09/18 23:59 23:59 23:59 Intake Total 3537 / 3537 564 / 564 780 / 780 Output Total 1950 / 1950 300 / 300 400 / 400 Balance 1587 / 1587 264 / 264 380 / 380 General: Alert, Oriented x3, Cooperative, No apparent distress HEENT: Atraumatic, PERRLA, EOMI, Normocephalic Oral: Moist Mucosa Neck: Supple, No JVD, Negative Carotid Bruits Lungs: Clear to auscultation, Normal air movement, No rhonchi, No wheeze, No rales Cardiovascular: Regular rate, Regular Rhythm, Normal S1, Normal S2, No murmurs Abdomen: Bowel Sounds Present, Soft, Non Tender, Non-Distended, No Hepato- splenomegaly Extremities: No clubbing, No cyanosis, No edema, Capillary Refill Less than 3 Seconds Skin: No rashes, No breakdown Musculoskeletal: No Tenderness to Palpation of Joints or Extremities Lymphatic: No Cervical, Supraclavicular, or Inguinal Adenopathy Neurological: Cranial nerves II-XII grossly intact, Neuro grossly intact, Motor Exam 5/5 strength throughout Psych/Mental Status: Normal Affect, Appropriate, Alert and oriented to time, place, person, mood and affect Laboratory Results 10/09/18 05:46: WBC 4.7, RBC 3.51 L, Hgb 10.7 L, Hct 33.1 L, MCV 94.3, MCH 30.5, MCHC 32.3, RDW 14.5, RDW Differential 47.7 H, Plt Count 115 L, MPV 10.5 Current Medications Acetaminophen (Tylenol) 1,000 mg PO Q8 REPLACED BY [facility] Last Admin: 10/09/18 04:50 Dose: 1,000 mg Alprazolam (Xanax) 0.25 mg PO BID PRN PRN Reason: ANXIETY Last Admin: 10/07/18 21:20 Dose: 0.25 mg Aspirin (Aspirin, Baby) 81 mg PO BIDCM REPLACED BY [facility] Last Admin: 10/09/18 07:39 Dose: 81 mg Bupropion HCl (Wellbutrin Xl) 300 mg PO DAILY REPLACED BY [facility] Last Admin: 10/09/18 07:48 Dose: 300 mg Carbidopa/Levodopa (Sinemet) 2 tablet PO TIDAC REPLACED BY [facility] Last Admin: 10/09/18 11:36 Dose: 2 tablet Famotidine (Pepcid) 20 mg PO DAILY REPLACED BY [facility] Last Admin: 10/09/18 07:49 Dose: 20 mg Fluoxetine HCl (Prozac) 80 mg PO DAILY REPL[facility]ED BY [facility] Last Admin: 10/09/18 07:48 Dose: 80 mg Lisinopril (Zestril) 20 mg PO DAILY [facility]PL[facility] BY [facility] Last Admin: 10/09/18 07:48 Dose: 20 mg Melatonin (Melatonin) 5 mg PO QHS REPLACED BY [facility] Last Admin: 10/08/18 20:33 Dose: 5 mg Meloxicam (Mobic) 7.5 mg PO BID REPLACED BY [facility] Last Admin: 10/09/18 07:49 Dose: 7.5 mg Metoprolol Succinate (Toprol Xl (Beta Randy)) 50 mg PO DAILY REPLACED BY [facility] Last Admin: 10/09/18 07:48 Dose: 50 mg Morphine Sulfate () 2 - 4 mg IV Q2H PRN PRN PRN Reason: SEVERE PAIN (6-10/10) Last Admin: 10/09/18 11:39 Dose: 2 mg Morphine Sulfate () 2 - 4 mg IV Q2H PRN PRN PRN Reason: SEVERE PAIN (6-10/10) Nitroglycerin (Nitrostat) 0.4 mg SUBLINGUAL Q5M PRN PRN Reason: Chest Pain Nutritional Formula (Lactose Free) (Ensure Clear) 120 ml PO TIDCM REPLACED BY [facility] Last Admin: 10/09/18 11:40 Dose: Not Given Ondansetron HCl (Zofran) 4 mg IV Q8H PRN PRN PRN Reason: NAUSEA Oxycodone HCl (Oxyir) 5 - 10 mg PO Q4H PRN PRN PRN Reason: MOD-SEVERE PAIN (4-09/10) Last Admin: 10/09/18 09:49 Dose: 10 mg Pravastatin Sodium (Pravachol) 80 mg PO QHS REPLACED BY [facility] Last Admin: 10/08/18 20:34 Dose: 80 mg Prochlorperazine Maleate (Compazine Tablet) 10 mg PO BID PRN PRN PRN Reason: NAUSEA Last Admin: 10/08/18 14:41 Dose: 10 mg Promethazine HCl (Phenergan) 12.5 mg IM Q6H PRN PRN; Protocol PRN Reason: NAUSEA/VOMITING Senna/Docusate Sodium (Senokot-S, Kari-Colace) 2 tablet PO BID REPLACED BY [facility] Last Admin: 10/09/18 07:48 Dose: 2 tablet Sodium Chloride () 5 - 30 ml IV UD PRN PRN Reason: SALINE FLUSH Last Admin: 10/09/18 11:38 Dose: 10 ml Medical Necessity - Tobacco Use Smoking Status: Never smoker Assessment/Plan All Active Problems (Last Updated 05/20/18 @ 15:37 by Gale Villegas) Colon cancer (Resolved) Compression fracture of body of thoracic vertebra (Acute) 1. Osteoarthritis s/o left total hip replacement * today is POD 2. Has no complaints. Has mild pain from PT/OT * stable * pain meds as per orthopedics * 2. CAD s/p stents x 3: on aspirin, statin, metoprolol 3. Hypertension: fairly controlled for age. on metoprolol and lisinopril 4. History of colorectal cancer: s/p hemicolectomy in 2014. Stable and in remission 5. History of migraines: on tylenol prn 6. Parkinson's disease: on Sinemet 7. Depression: On Wellbutrin, Xanax and Prozac. 8. Anemia: likely due to acute blood loss from surgery. Hb today is 10.7, baseline is ~ 14.8- from 09/18. Will monitor DVT prophylaxis: Aspirin 81 mg twice daily as per orthopedics. Disposition: Discharge home today to follow-up with orthopedics and her primary care doctor. Code Visit Inpatient E&M: 26314 Subs Hosp L2
[2018-10-09 14:50] VITALS: BP 130/68; PULSE 69; RESP 16; TEMP 36.6; O2SAT 95
== END 2018-10-09 14:45 | disposition home or self-care (01) | DRG 470 ==
LOC: ACINP 08:31 → MS3 12:13
PROVIDERS: Anesthesiology; Admitting Provider Specialist; Family Provider Internal Medicine; PCP Internal Medicine; Referring Provider Specialist; Visit Provider Student in an Organized Health Care Education/Training Program
PROC: 0SRB04A Replacement of Left Hip Joint with Ceramic on Polyethylene Synthetic Substitute, Uncemented, Open Approach (ICD-10-PCS; CPT 27284; principal; 2018-10-07 10:35)
DX: M16.12 Unilateral primary osteoarthritis, left hip (principal); D62 Acute posthemorrhagic anemia; G20 Parkinson's disease; I10 Essential (primary) hypertension; Z85.038 Personal history of other malignant neoplasm of large intestine; Z90.49 Acquired absence of other specified parts of digestive tract; Z95.5 Presence of coronary angioplasty implant and graft; I25.10 Atherosclerotic heart disease of native coronary artery without angina pectoris; R51 Headache; F32.9 Major depressive disorder, single episode, unspecified; F41.9 Anxiety disorder, unspecified
CPT/HCPCS: 36415; 73501; 73502; 76000; 80048; 80076; 85025; 85027; 85610; 85730; 87081; 97110; 97162; 97165; 97530; 99251; C1776; J7120; A4216; G0463; J2405

== ENCOUNTER 2018-12-24 20:58 | Inpatient (IN) | payer MEDICARE, OTHER, SELFPAY ==
[2018-11-18 14:15] VITALS: BMI 24.6
[2018-12-24 20:59] VITALS: BP 160/80; PULSE 60; RESP 14; TEMP 36.6; O2SAT 94; BMI 22.9
--- NOTE | 2018-12-24 21:12 | EKG12_ITS ---
Test Reason : GEN ILLNESS Blood Pressure : / mmHG Vent. Rate : 056 BPM Atrial Rate : 056 BPM P-R Int : 154 ms QRS Dur : 092 ms QT Int : 576 ms P-R-T Axes : 038 005 -06 degrees QTc Int : 555 ms Sinus bradycardia Possible Left atrial enlargement Left ventricular hypertrophy Nonspecific ST and T wave abnormality Prolonged QT Abnormal ECG Confirmed by LUIZA MATTSON, JULIAN ([id number]), food expeditor DELTA JACKSON ([id number]) on 12/30/2018 2:43:10 PM Referred By: THEE Confirmed By:JULIAN JARRETT MD
--- NOTE | 2018-12-24 21:33 | RAD_ITS ---
STUDY: X-RAY CHEST REASON FOR EXAM: Female, 73 years old. Weakness, nausea. TECHNIQUE: Single frontal view of the chest. COMPARISON: February 15, 2014 FINDINGS: The lungs are clear and expanded. There is no demonstrated pleural abnormality. Normal size heart. Normal mediastinum and armani. Normal visualized pulmonary arteries. Normal visualized aortic arch and descending thoracic aorta. There is evidence of a prior vertebroplasty of a lower thoracic vertebra. Normal visualized ribs, clavicles, and shoulders. There is no demonstrated abnormality of the visualized soft tissue structures of the upper abdomen. RAD/Chest 1 View (Portable) IMPRESSION: No acute cardiopulmonary process. Electronically Signed: Connie Zavala MD at 21:51 EST Tel , Service support ,
[2018-12-24 21:46] LABS: Absolute Lymphocyte Count 1.15 X10^3/ul (0.83-4.51); Absolute Neutrophil Count 1.8 X10^3/uL (2.0-7.7); Basophil# 0.01 X10^3/uL; Basophil% 0.3 % (0-1); Eosinophil# 0.03 X10^3/uL; Eosinophils% 0.9 % (0-5); Hematocrit 43.3 % (37-47); Hemoglobin 13.7 g/dl (12.0-15.0); Lymphocyte # 1.15 X10^3/ul (4.0); Mean Corp Hgb Conc 31.6 g/gl (32-36); Mean Corpuscular Hgb 28.8 pg (27.0-32.0); Mean Corpuscular Volume 91.2 fL (81-99); Mean Platelet Vol. 10.7 fl (6.2-12.0); Monocyte% 14.4 % (0-10); Neutrophil # 1.79 X10^3/uL (2.7-7.7); Neutrophil % 51.4 % (47-70); Platelet Count 198 K/mm3 (150-450); RBC Distribution Width CV 14.1 % (11.6-14.6); RBC Distribution Width SD 46.5 fl (35.1-43.9); Red Blood Count 4.75 M/mm3 (4.2-5.4); White Blood Count 3.5 K/mm3 (4.4-11.0)
[2018-12-24 21:52] LABS: Bacteria 0 SEEN /hpf (None Seen); Mucous, Urine 0 SEEN /hpf (<or=2+); Red Blood Cells-Urine 0 SEEN /hpf (0-5); Squamous Epithelial Cells - UA 0 SEEN /hpf (5-10); White Blood Cells 0 SEEN /hpf (0-5)
[2018-12-24 21:54] LABS: Color, Urine Yellow (Yellow); Glucose, Dipstick Normal (Normal); Ketone-Dipstick Negative (Negative); Leukocyte Esterase-Dipstick 25 /ul (Negative); Nitrite-Dipstick Negative (Negative); Occult Blood-Urine Negative /ul (Negative); Protein-Dipstick 30 mg/dl (Negative); Urine Bilirubin Dipstick Negative (Negative); Urine Clarity Clear (Clear); Urine Urobilinogen Normal (Normal)
[2018-12-24 21:58] LABS: ALB/GLOB Ratio 1.3 RATIO (0.9-2.4); AST(SGOT) 28 U/L (15-37); Alanine Aminotransfer ALT/SGPT 22 U/L (13-56); Albumin, Serum 3.6 g/dL (3.2-5.0); Alkaline Phosphatase 162 U/L (45-117); Anion Gap 11 (5-15); BUN 19 mg/dL (7-18); BUN/Creat Ratio 26.2 RATIO (10-20); Calcium,Total 9.2 mg/dL (8.5-10.1); Chloride 102 mmol/L (98-107); Creatinine, Serum 0.72 mg/dL (0.55-1.02); EST Glomerular Filtration Rate 83 mL/min (>60); Est Glom Filt Rate - Afr Amer 101 mL/min (>60); Estimated Creatinine Clearance 43.74 ml/min; Globulin 2.8 g/dL (2.2-4.2); Glucose 96 mg/dL (74-106); Potassium 2.7 mmol/L (3.5-5.1); Protein, Total 6.4 g/dL (6.4-8.2); Sodium Level 142 mmol/L (136-145)
[2018-12-24 22:03] LABS: Amorphous Sediment 1+
[2018-12-24 22:12] LABS: BNP,B-Type NATRIURETIC PEPTIDE 175.3 pg/mL (0-100)
--- NOTE | 2018-12-24 22:14 | ED.RN ---
DR CHINO NOTIFIED OF K+ 2.7
[2018-12-24 22:17] VITALS: BP 177/72; PULSE 56; RESP 17; O2SAT 91
[2018-12-24 22:25] LABS: POSITIVE COUNT NO; POSITIVE DIFFERENTIAL NO; POSITIVE MORPHOLOGY NO
[2018-12-24] MEDS: Aspirin 81 MG TAB.CHEW 324 MG PO (22:40)
[2018-12-24] MEDS: Potassium Chloride 10mEq/100mL 10 MEQ/100 ML IV.SOLN. 100 MEQ IV BOLUS ×2 (22:50→23:58)
--- NOTE | 2018-12-24 23:02 | ED.VISSUMM ---
- ER Visit Summary Date of Service: 12/24/18 Chief Complaint: Generalized weakness History of Present Illness: The patient is a 73 F presenting for evaluation secondary to generalized weakness. Patient has been dealing with issues of worsening generalized weakness over the course of the last year but specifically worse in the last 3-4 weeks. Today the patient was having such profound weakness that she was having difficulty with ambulation and also was confused and that prompted her significant other to call EMS and have her brought to the emergency department. Patient has a underlying history of Parkinson's disease. Apparently she has not really been able to eat or feed herself secondary to the severity of her tremor Physical Examination: Vital signs notable blood pressure 177/72 well-nourished female no acute distress. Significantly dry mucous membranes. Neck was supple. Heart was bradycardic and had a 3 out of 6 systolic murmur with a regular rhythm. Lungs are clear. Abdomen soft nontender. Extremities showed +1 symmetric edema. Skin normal color. Patient was alert and oriented Test Results: EKG demonstrates sinus bradycardia with ventricular rate of 56 no evidence of ischemic changes and a prolonged QTC. CBC unremarkable, chemistry shows hypokalemia, liver panel unremarkable urinalysis negative troponin indeterminate 0.04. Chest x-ray shows chronic changes. Emergency Department Course and Treatment: Patient presented secondary to generalized weakness and confusion. A delirium workup was obtained which only showed evidence of hypokalemia and elevation of the troponin to an indeterminate range. Patient's potassium was replaced. Given her functional decline, hypokalemia, elevated troponin I believe she requires admission. I will discussed this with hospitalist. Disposition: Admission Impression: 1. Hypokalemia 2. Functional decline 3. Indeterminate troponin This note was generated with [employer] dictation software. It may contain incorrect words, spelling, and punctuation that were not noted in review of the chart prior to signing ED Disposition - Plan for ED Patient: Chief Complaint: General Illness Referrals: America Torres DO [Primary Care Provider] -
[2018-12-24 23:03] VITALS: PULSE 57; RESP 17; O2SAT 91
[2018-12-25] VITALS (16 sets, daily range): BP systolic 161–187; BP diastolic 67–95; PULSE 55–59; RESP 14–18; TEMP 36.3–36.7; O2SAT 93–97; BMI 21.5; BMI 23.0
--- NOTE | 2018-12-25 01:10 | RAD_ITS ---
STUDY: X-RAY - ABDOMEN/PELVIS REASON FOR EXAM: Female, 73 years old. Vomiting TECHNIQUE: 2 views COMPARISON: None. FINDINGS: Supine and left lateral decubitus views are presented. Left hip arthroplasty. T12 vertebroplasty. Acute air-fluid levels in the colon without distention could be related to ileus or enteritis. No free air is seen. No small bowel obstruction is seen. RAD/Abd Inc Decub and/or Erect IMPRESSION: Acute air-fluid levels in the colon without distention could be related to ileus or enteritis. Electronically Signed: Chivo Springer MD at 2:06 EST Tel , Service support ,
--- NOTE | 2018-12-25 01:18 | HP.PCM_ITS ---
Problem List (1) Recurrent fall Status: Acute (2) Coronary atherosclerosis of [place] coronary vessel Status: Chronic (3) Gastroesophageal reflux disease Status: Chronic (4) Pure hypercholesterolemia Status: Chronic (5) CAD (coronary artery disease) Status: Chronic (6) Migraine Status: Chronic (7) Hyperlipidemia Status: Chronic (8) Hypertension Status: Chronic (9) Colon cancer Status: Resolved (10) Compression fracture of body of thoracic vertebra Status: Chronic (11) History of colon cancer Status: Chronic History of Present Illness Date of Admission: 12/25/18 Chief Complaint: Recurrent fall last 1 week The patient is a 73 year old F with multiple comorbidities as listed including Parkinson's disease and back pain came to ER for recurrent fall about 3 times in last 1 week. She has unsteady gait and incoordination and fell on her back and hit head. She denies chest pain, dizziness, near syncope or syncope. She also has vomiting for last 2 days about 3-4 times started spontaneously without history of unusual food intake/food poisoning, not associated with abdominal pain, constipation or diarrhea. In ED, K2.7, WBC 3.5 thousand. EKG shows sinus bradycardia at 56 bpm with LVH with repolarization abnormality. Previous EKG was 65 bpm, normal sinus rhythm in January 2015. Troponin is in indeterminate range 0.046. UA is negative. Chest x-ray shows no acute cardiopulmonary process. [] Past Medical History Past Medical History (Chronic Problems): Chronic Problems (Last Reviewed 11/18/18 @ 14:10 by Gale Villegas) Coronary atherosclerosis of [place] coronary vessel (Chronic) Gastroesophageal reflux disease (Chronic) Pure hypercholesterolemia (Chronic) CAD (coronary artery disease) (Chronic) Migraine (Chronic) Hyperlipidemia (Chronic) Hypertension (Chronic) Compression fracture of body of thoracic vertebra (Chronic) History of colon cancer (Chronic) Medical History: Medical History (Last Reviewed 11/18/18 @ 14:10 by Gale Villegas) Depression F32.9 Migraine G43.909 Nonallopathic lesion of abdomen M99.9 left pelvis Parkinsons disease G20 Pelvic somatic dysfunction M99.05 Segmental and somatic dysfunction of lumbar region M99.03 Segmental and somatic dysfunction of thoracic region M99.02 Allergies butorphanol tartrate [From Stadol] Allergy (Verified 12/24/18 21:04) Shortness of breath ketorolac tromethamine [From Toradol] Allergy (Verified 12/24/18 21:04) Shortness of breath nalbuphine HCl [From Nubain] Allergy (Verified 12/24/18 21:04) Shortness of breath sumatriptan [From Imitrex] Allergy (Verified 12/24/18 21:04) Shortness of breath sumatriptan succinate [From Imitrex] Allergy (Verified 12/24/18 21:04) Shortness of breath atorvastatin calcium [From Lipitor] Adverse Reaction (Verified 12/24/18 21:04) Other hurt all over head to toe Home Medications: Ambulatory Orders Medication Instructions Recorded buPROPion XL [Wellbutrin Xl] 300 mg PO DAILY #0 tablet.xl 02/15/15 Nitroglycerin [Nitrostat] 0.4 mg SUBLINGUAL Q5M PRN 03/12/18 Pravastatin [Pravachol] 80 mg PO QHS 03/12/18 Prochlorperazine Maleate 10 mg PO Q6H PRN PRN 03/12/18 [Compazine] Carbidopa/Levodopa 25/100 [Sinemet 2 tab PO BID 05/20/18 25/100] Lisinopril 20 mg PO BID 10/07/18 Amantadine HCl [Amantadine] 100 mg PO BID 12/24/18 Aspirin [Aspirin, Baby] 81 mg PO DAILY 12/24/18 Cyproheptadine HCl 4 mg PO QHS PRN 12/24/18 Erenumab-Aooe [Aimovig 70 mg SQ QMONTH 12/24/18 Autoinjector] Fluoxetine HCl 80 mg PO DAILY 12/24/18 Hydrocodone/Acetaminophen 1 each PO Q6H PRN PRN 12/24/18 [Hydrocodon-Acetaminophen 5-325] Melatonin 5 mg PO QHS 12/24/18 Metoprolol Succinate [Toprol Xl] 50 mg PO DAILY 12/24/18 Oxycodone-Aspirin 1 tab PO Q6H PRN PRN 12/24/18 Pantoprazole Sodium 40 mg PO DAILY 12/24/18 Surgical History: Surgical History (Last Updated 05/20/18 @ 15:33 by Gale Villegas) H/O bladder repair surgery Z98.890 H/O lumpectomy Z98.890 History of appendectomy Z90.49 History of kyphoplasty Z98.890 T12 with insertion of HV-R bone cement at T12 History of right hemicolectomy Z90.49 Hx of cholecystectomy Z90.49 Surgical History: cholecystectomy Smoking Status: Never smoker - *Family History Maternal Family History: Family History (Last Updated 05/20/18 @ 15:37 by Gale Villegas) Mother Hypertension History Items: No pertinent history Review of Systems Constitutional: Denies: Chills, Fever, Weight Change HEENT: Denies: Head Aches, Sinus Congestion, Sinus Drainage Cardiovascular: Denies: Chest Pain, Palpitations Respiratory: Denies: Cough, Shortness of breath at rest, Sputum production Gastrointestinal: Reports: Nausea, Vomiting. Denies: Abdominal Pain, Constipation, Diarrhea Genitourinary: Denies: Dysuria, Frequency, Urgency Musculoskeletal: Reports: Back Pain, Joint Pain, Joint stiffness, Joint Tenderness Skin: Denies: Rash, Wounds Neurological: Reports: Balance problems, Incoordination. Denies: Focal weakness, Numbness, Tingling Psychiatric: Reports: Anxiety. Denies: Depression, Homicidal Ideations, Suicidal Ideations Hematologic/ Lymphatic: Denies: Easy Bruising, Easy Bleeding VTE Information - Inpt Only VTE Present on Admission: No VTE Mechan Device Prophylaxis: None VTE Pharm Prophylaxis ordered?: Yes Patient Problems: Active and Suspected Problems (Last Reviewed 11/18/18 @ 14:10 by Gale Villegas) Recurrent fall (Acute) - Physical Exam General: Alert, Oriented x3, Cooperative HEENT: Atraumatic, PERRLA, EOMI, Normocephalic Neck: Supple, No JVD, Negative Carotid Bruits Lungs: Clear to auscultation, Normal air movement, No rhonchi, No wheeze, No rales Cardiovascular: Regular rate, Normal S1, Normal S2, No murmurs, Murmur - Systolic murmur present over aortic valve, left lower sternal border and mitral area Abdomen: Bowel Sounds Present, Soft, Non Tender, Non-Distended Extremities: No edema, Capillary Refill Less than 3 Seconds Skin: No rashes, No breakdown Musculoskeletal: Arthritic Changes, Muscle Wasting, Tenderness - Tenderness present in lumbar spine Neurological: Cranial nerves II-XII grossly intact, Deep Tendon Reflexes 2+/4 and Symmetrical, Neuro grossly intact, - - Mild weakness in bilateral lower extremities at hip and knee joints. Psych/Mental Status: Normal Affect, Appropriate Vital Signs Temp Pulse Resp BP Pulse Ox 97.8 F 57 L 17 177/72 H 91 12/24/18 20:59 12/24/18 23:03 12/24/18 23:03 12/24/18 22:17 12/24/18 23:03 Oxygen Delivery Method Room Air Weight: 138 lb 0.15 oz Body Mass Index (BMI) 22.9 Laboratory Tests Past 24 Hrs 12/24/18 12/24/18 12/24/18 21:20 21:20 21:20 WBC 3.5 L RBC 4.75 Hgb 13.7 Hct 43.3 MCV 91.2 MCH 28.8 MCHC 31.6 L RDW 14.1 RDW Differential 46.5 H Plt Count 198 MPV 10.7 Immature Gran % (Auto) 0.000 Neut % (Auto) 51.4 Lymph % (Auto) 33.0 [place] % (Auto) 14.4 H Eos % (Auto) 0.9 Baso % (Auto) 0.3 Absolute Neuts (auto) 1.8 L Absolute Lymphs (auto) 1.15 Total Counted Not Reportable Sodium 142 Potassium 2.7 L* Chloride 102 Carbon Dioxide 29.0 Anion Gap 11 BUN 19 H Creatinine 0.72 Estim Creat Clear Calc 43.74 Est GFR (MDRD) Af Amer 101 Est GFR (MDRD) Non-Af 83 BUN/Creatinine Ratio 26.2 H Glucose 96 Calcium 9.2 Total Bilirubin 0.40 AST 28 ALT 22 Alkaline Phosphatase 162 H Troponin I 0.046 H B-Natriuretic Peptide 175.3 H Total Protein 6.4 Albumin 3.6 Globulin 2.8 Albumin/Globulin Ratio 1.3 Urine Color Urine Clarity Urine pH Ur Specific [place] Urine Protein Urine Glucose (UA) Urine Ketones Urine Occult Blood Urine Nitrite Urine Bilirubin Urine Urobilinogen Ur Leukocyte Esterase Urine RBC Urine WBC Ur Squamous Epith Cells Amorphous Sediment Urine Bacteria Urine Mucus 12/24/18 21:45 WBC RBC Hgb Hct MCV MCH MCHC RDW RDW Differential Plt Count MPV Immature Gran % (Auto) Neut % (Auto) Lymph % (Auto) [place] % (Auto) Eos % (Auto) Baso % (Auto) Absolute Neuts (auto) Absolute Lymphs (auto) Total Counted Sodium Potassium Chloride Carbon Dioxide Anion Gap BUN Creatinine Estim Creat Clear Calc Est GFR (MDRD) Af Amer Est GFR (MDRD) Non-Af BUN/Creatinine Ratio Glucose Calcium Total Bilirubin AST ALT Alkaline Phosphatase Troponin I B-Natriuretic Peptide Total Protein Albumin Globulin Albumin/Globulin Ratio Urine Color Yellow Urine Clarity Clear Urine pH 7.0 Ur Specific [place] 1.010 Urine Protein 30 H Urine Glucose (UA) Normal Urine Ketones Negative Urine Occult Blood Negative Urine Nitrite Negative Urine Bilirubin Negative Urine Urobilinogen Normal Ur Leukocyte Esterase 25 H Urine RBC 0 SEEN Urine WBC 0 SEEN Ur Squamous Epith Cells 0 SEEN Amorphous Sediment 1+ Urine Bacteria 0 SEEN Urine Mucus 0 SEEN Assessment/Plan All Active Problems (Last Reviewed 11/18/18 @ 14:10 by Gale Villegas) Colon cancer (Resolved) Recurrent fall (Acute) The patient is a 73 year old F with multiple comorbidities as listed including Parkinson's disease and back pain came to ER for recurrent fall about 3 times in last 1 week. She has unsteady gait and incoordination and fell on her back and hit head. She denies chest pain, dizziness, near syncope or syncope. She also has vomiting for last 2 days about 3-4 times started spontaneously without history of unusual food intake/food poisoning, not associated with abdominal pain, constipation or diarrhea. In ED, K2.7, WBC 3.5 thousand. EKG shows sinus bradycardia at 56 bpm with LVH with repolarization abnormality. Previous EKG was 65 bpm, normal sinus rhythm in January 2015. Troponin is in indeterminate range 0.046. UA is negative. Chest x-ray shows no acute cardiopulmonary process. 1. Recurrent fall secondary to gait instability due to Parkinson's disease and degenerative joint disease/muscle atrophy: Patient is being admitted on PCU. PT and OT. Gait training. Possible SNF placement. 2. Recurrent vomiting, suspect medication induced/food poisoning: Abdomen is soft, nontender nondistended. Abdominal x-ray including pelvis ordered. Symptomatic management. 3. Severe hypokalemia with dehydration: IV fluid replacement with KCl. Monitor K and magnesium tomorrow a.m. 4. Intermittent troponin: Patient denies chest pain, shortness of breath or palpitation. Stress test nuclear stress test in January 2015 reported as normal with EF 68%. Repeat one more troponin to see the change. 5. Coronary artery disease status post 4 stents, hypertension, dyslipidemia: Home medication reconciliation done. 6. Parkinson's disease, migraine headache: Patient current complaint of headache. Tylenol. Parkinson's medications resumed. 7. Other comorbidities include compression fracture of thoracic vertebra, history of colon cancer: Stable. DVT prophylaxis on Lovenox 40 mg subcu daily. Discontinue if platelet count drops less than 90,000 or hemoglobin less than 8 g% This note was generated with [employer] dictation software. Every effort was made to ensure accuracy, however computerized fabric separator operator mistakes may persist. [] Clinical Impression(s) from Imaging Studies Chest X-Ray 12/24/18 21:33 IMPRESSION: No acute cardiopulmonary process. Code Visit Inpatient E&M: 29101 Init Hosp L3
[2018-12-25] MEDS: HYDROcodone Bitartrate/Apap 5/325 Tablet PO ×3 (01:40→21:37)
[2018-12-25] MEDS: proCHLORPERazine 5 MG Tablet 10 MG PO ×2 (01:41→21:34)
[2018-12-25] MEDS: Enoxaparin 40 MG/0.4 ML Syringe SC (01:43)
[2018-12-25] MEDS: Potassium Chloride 40 MEQ in 0.9% Normal Saline 1,000 ML 100 MEQ IV (01:43)
[2018-12-25 03:52] LABS: Absolute Lymphocyte Count 1.28 X10^3/ul (0.83-4.51); Absolute Neutrophil Count 1.9 X10^3/uL (2.0-7.7); Basophil# 0.02 X10^3/uL; Basophil% 0.5 % (0-1); Eosinophil# 0.04 X10^3/uL; Hemoglobin 13.2 g/dl (12.0-15.0); Lymphocyte # 1.28 X10^3/ul (4.0); Lymphocyte % 33.5 % (19-41); Mean Corp Hgb Conc 32.2 g/gl (32-36); Mean Corpuscular Hgb 29.3 pg (27.0-32.0); Mean Corpuscular Volume 91.1 fL (81-99); Monocyte# 0.57 X10^3/uL; Monocyte% 14.9 % (0-10); Neutrophil # 1.91 X10^3/uL (2.7-7.7); Neutrophil % 50.1 % (47-70); Platelet Count 166 K/mm3 (150-450); RBC Distribution Width CV 13.8 % (11.6-14.6); RBC Distribution Width SD 44.8 fl (35.1-43.9); White Blood Count 3.8 K/mm3 (4.4-11.0)
[2018-12-25 03:54] LABS: POSITIVE COUNT NO; POSITIVE DIFFERENTIAL NO; POSITIVE MORPHOLOGY NO
[2018-12-25 04:42] LABS: Anion Gap 10 (5-15); BUN 20 mg/dL (7-18); BUN/Creat Ratio 30.3 RATIO (10-20); Chloride 106 mmol/L (98-107); Creatinine, Serum 0.66 mg/dL (0.55-1.02); EST Glomerular Filtration Rate 93 mL/min (>60); Est Glom Filt Rate - Afr Amer 112 mL/min (>60); Estimated Creatinine Clearance 43.74 ml/min; Glucose 78 mg/dL (74-106); Magnesium 2.7 mg/dL (1.6-2.6); Potassium 3.1 mmol/L (3.5-5.1); Sodium Level 143 mmol/L (136-145)
[2018-12-25 09:37] LABS: Phosphorus 2.7 mg/dL (2.5-4.9)
[2018-12-25] MEDS: Lisinopril 20 MG Tablet PO ×2 (09:49→21:37)
[2018-12-25] MEDS: Aspirin 81 MG TAB.CHEW PO (09:49)
[2018-12-25] MEDS: Pantoprazole Sodium 40 MG Tablet PO (09:49)
[2018-12-25] MEDS: Amantadine 100 MG Capsule PO ×2 (09:50→21:37)
[2018-12-25] MEDS: buPROPion (XL) 300 MG TABLET.XL PO (09:50)
[2018-12-25] MEDS: FLUoxetine 20 MG Capsule 40 MG PO (09:50)
[2018-12-25] MEDS: Carbidopa/Levodopa 25/100 Tablet PO ×2 (10:52→17:18)
[2018-12-25] MEDS: Metoprolol(XL)Succ 100 MG Tablet PO (10:52)
--- NOTE | 2018-12-25 11:08 | CASEMGMT ---
Assessment- SW met with patient. Introduced self and role at [facility]. Patient's son was present, but she was ok with talking with him present. Living situation- Patient lives with her in a 1 story home with a basement. Laundry is in the basement. She has about 3 entry steps. PCP: Dr America Torres Pharmacy: [facility] D[facility]: Shower chair, grab bars, raised toilet seat, cane, walker, and rollater ADL's/IADL's: Patient normally bathes herself and she manages her own medications. Her does the cooking, cleaning, and driving. She normally does not use any assistive devices to get around. Past SNF/rehab: None Past HH: None LW: Yes, but not on file. POA: Yes, but not on file. Her [facility] is her healthcare POA Plan: SW spoke with patient about her d/c plan. She said she would like someone to come to her home. SW explained to her that insurance will only pay for a nurse to come out once or maybe twice a week, therapy maybe twice a week, and an aide for personal care only mayb 2-3 hrs a week. SW asked her if that would be enough help. SW also told her it may be a good idea to go to a custodial facility short term for some rehab and then go home. She said she wants home health. AYLA told her we will follow and assist with d/c planning. Caroline AL MSW
--- NOTE | 2018-12-25 11:29 | PN_ITS ---
<Selvin Weiner - Last Filed: 12/25/18 11:49> Patient Problems: Active and Suspected Problems (Last Reviewed 11/18/18 @ 14:10 by Gale Villegas) Recurrent fall (Acute) Subjective: Pt continues to c/o migraine. She has a hx of migraines. Today her RENE is left sided from front to back with visual disturbances and photophobia. Nausea is decreased, no vomiting. Pt is very tremulous still. She has separate neurologists that manage her migraines and parkinsons. - Physical Exam General: Alert, Oriented x3, Cooperative HEENT: Atraumatic, PERRLA, EOMI, Normocephalic Neck: Supple, No JVD, Negative Carotid Bruits Lungs: Clear to auscultation, Normal air movement Cardiovascular: Regular rate, No murmurs Abdomen: Bowel Sounds Present, Soft, Non Tender Extremities: No edema, Capillary Refill Less than 3 Seconds Skin: No rashes, No breakdown Musculoskeletal: No Tenderness to Palpation of Joints or Extremities Neurological: Cranial nerves II-XII grossly intact, - - tremor BL UE Psych/Mental Status: Normal Affect, Appropriate, Alert and oriented to time, place, person, mood and affect Vital Signs Temp Pulse Resp BP Pulse Ox 97.6 F L 55 L 16 187/82 H 93 12/25/18 08:00 12/25/18 10:52 12/25/18 08:00 12/25/18 08:00 12/25/18 08:07 Oxygen Delivery Method Room Air Weight: 129 lb 10.109 oz Body Mass Index (BMI) 21.5 Intake and Output for Last 24 Hours 12/23/18 12/24/18 12/25/18 23:59 23:59 23:59 Intake Total 636 / 636 Balance 636 / 636 Laboratory Tests Past 24 Hrs 12/24/18 12/24/18 12/24/18 21:20 21:20 21:20 WBC 3.5 L RBC 4.75 Hgb 13.7 Hct 43.3 MCV 91.2 MCH 28.8 MCHC 31.6 L RDW 14.1 RDW Differential 46.5 H Plt Count 198 MPV 10.7 Immature Gran % (Auto) 0.000 Neut % (Auto) 51.4 Lymph % (Auto) 33.0 [place] % (Auto) 14.4 H Eos % (Auto) 0.9 Baso % (Auto) 0.3 Absolute Neuts (auto) 1.8 L Absolute Lymphs (auto) 1.15 Total Counted Not Reportable Sodium 142 Potassium 2.7 L* Chloride 102 Carbon Dioxide 29.0 Anion Gap 11 BUN 19 H Creatinine 0.72 Estim Creat Clear Calc 43.74 Est GFR (MDRD) Af Amer 101 Est GFR (MDRD) Non-Af 83 BUN/Creatinine Ratio 26.2 H Glucose 96 Calcium 9.2 Phosphorus Magnesium Total Bilirubin 0.40 AST 28 ALT 22 Alkaline Phosphatase 162 H Troponin I 0.046 H B-Natriuretic Peptide 175.3 H Total Protein 6.4 Albumin 3.6 Globulin 2.8 Albumin/Globulin Ratio 1.3 Urine Color Urine Clarity Urine pH Ur Specific [place] Urine Protein Urine Glucose (UA) Urine Ketones Urine Occult Blood Urine Nitrite Urine Bilirubin Urine Urobilinogen Ur Leukocyte Esterase Urine RBC Urine WBC Ur Squamous Epith Cells Amorphous Sediment Urine Bacteria Urine Mucus 12/24/18 12/25/18 12/25/18 21:45 01:25 03:40 WBC 3.8 L RBC 4.50 Hgb 13.2 Hct 41.0 MCV 91.1 MCH 29.3 MCHC 32.2 RDW 13.8 RDW Differential 44.8 H Plt Count 166 MPV 11.0 Immature Gran % (Auto) 0.000 Neut % (Auto) 50.1 Lymph % (Auto) 33.5 [place] % (Auto) 14.9 H Eos % (Auto) 1.0 Baso % (Auto) 0.5 Absolute Neuts (auto) 1.9 L Absolute Lymphs (auto) 1.28 Total Counted Not Reportable Sodium Potassium Chloride Carbon Dioxide Anion Gap BUN Creatinine Estim Creat Clear Calc Est GFR (MDRD) Af Amer Est GFR (MDRD) Non-Af BUN/Creatinine Ratio Glucose Calcium Phosphorus Magnesium Total Bilirubin AST ALT Alkaline Phosphatase Troponin I 0.046 H B-Natriuretic Peptide Total Protein Albumin Globulin Albumin/Globulin Ratio Urine Color Yellow Urine Clarity Clear Urine pH 7.0 Ur Specific [place] 1.010 Urine Protein 30 H Urine Glucose (UA) Normal Urine Ketones Negative Urine Occult Blood Negative Urine Nitrite Negative Urine Bilirubin Negative Urine Urobilinogen Normal Ur Leukocyte Esterase 25 H Urine RBC 0 SEEN Urine WBC 0 SEEN Ur Squamous Epith Cells 0 SEEN Amorphous Sediment 1+ Urine Bacteria 0 SEEN Urine Mucus 0 SEEN 0112/25/18 12/25/18 03:40 03:40 03:40 WBC RBC Hgb Hct MCV MCH MCHC RDW RDW Differential Plt Count MPV Immature Gran % (Auto) Neut % (Auto) Lymph % (Auto) [place] % (Auto) Eos % (Auto) Baso % (Auto) Absolute Neuts (auto) Absolute Lymphs (auto) Total Counted Sodium 143 Potassium 3.1 L Chloride 106 Carbon Dioxide 27.0 Anion Gap 10 BUN 20 H Creatinine 0.66 Estim Creat Clear Calc 43.74 Est GFR (MDRD) Af Amer 112 Est GFR (MDRD) Non-Af 93 BUN/Creatinine Ratio 30.3 H Glucose 78 Calcium 9.0 Phosphorus 2.7 Magnesium 2.7 H Total Bilirubin AST ALT Alkaline Phosphatase Troponin I 0.031 B-Natriuretic Peptide Total Protein Albumin Globulin Albumin/Globulin Ratio Urine Color Urine Clarity Urine pH Ur Specific [place] Urine Protein Urine Glucose (UA) Urine Ketones Urine Occult Blood Urine Nitrite Urine Bilirubin Urine Urobilinogen Ur Leukocyte Esterase Urine RBC Urine WBC Ur Squamous Epith Cells Amorphous Sediment Urine Bacteria Urine Mucus Medical Necessity - Tobacco Use Smoking Status: Never smoker Assessment/Plan All Active Problems (Last Reviewed 11/18/18 @ 14:10 by Gale Villegas) Colon cancer (Resolved) Recurrent fall (Acute) 1. Recurrent falls with gait instability, worsened by Parkinson dz - PTOT. O/p f ollow up with neuro. Continue home parkinson medications. Pt likely needs placed. 2. Acute migraine - continue current therapy, consider decadron, depacon. Currently pt not desiring further medications, will reassess later today. Allergic to toradol, mag is elevated. Nausea improved. 3. Hypokalemia 2/2 GI loss - replete. Mag high. EKG mild sinus vijay. 4. Indeterminate trop - no CP, 2nd trop neg. 5. hx CAD, htn, hld - prior stents. On beta juan, mekhi, statin, aspirin DVT ppx: lovenox DC planning: SNF placement likely. This patient was seen by Selvin Weiner PA-C under the supervision of Doctor Chris. <Kaylen Perez - Last Filed: 12/25/18 14:47> - Physical Exam Vital Signs Temp Pulse Resp BP Pulse Ox 97.3 F L 55 L 14 161/67 H 93 12/25/18 14:00 12/25/18 14:00 12/25/18 14:00 12/25/18 14:00 12/25/18 14:00 Oxygen Delivery Method Room Air Weight: 58.8 kg Body Mass Index (BMI) 21.5 Intake and Output for Last 24 Hours 12/23/18 12/24/18 12/25/18 23:59 23:59 23:59 Intake Total 636 / 636 Balance 636 / 636 Laboratory Tests Past 24 Hrs 12/24/18 12/24/18 12/24/18 21:20 21:20 21:20 WBC 3.5 L RBC 4.75 Hgb 13.7 Hct 43.3 MCV 91.2 MCH 28.8 MCHC 31.6 L RDW 14.1 RDW Differential 46.5 H Plt Count 198 MPV 10.7 Immature Gran % (Auto) 0.000 Neut % (Auto) 51.4 Lymph % (Auto) 33.0 [place] % (Auto) 14.4 H Eos % (Auto) 0.9 Baso % (Auto) 0.3 Absolute Neuts (auto) 1.8 L Absolute Lymphs (auto) 1.15 Total Counted Not Reportable Sodium 142 Potassium 2.7 L* Chloride 102 Carbon Dioxide 29.0 Anion Gap 11 BUN 19 H Creatinine 0.72 Estim Creat Clear Calc 43.74 Est GFR (MDRD) Af Amer 101 Est GFR (MDRD) Non-Af 83 BUN/Creatinine Ratio 26.2 H Glucose 96 Calcium 9.2 Phosphorus Magnesium Total Bilirubin 0.40 AST 28 ALT 22 Alkaline Phosphatase 162 H Troponin I 0.046 H B-Natriuretic Peptide 175.3 H Total Protein 6.4 Albumin 3.6 Globulin 2.8 Albumin/Globulin Ratio 1.3 Urine Color Urine Clarity Urine pH Ur Specific [place] Urine Protein Urine Glucose (UA) Urine Ketones Urine Occult Blood Urine Nitrite Urine Bilirubin Urine Urobilinogen Ur Leukocyte Esterase Urine RBC Urine WBC Ur Squamous Epith Cells Amorphous Sediment Urine Bacteria Urine Mucus 12/24/18 12/25/18 12/25/18 21:45 01:25 03:40 WBC 3.8 L RBC 4.50 Hgb 13.2 Hct 41.0 MCV 91.1 MCH 29.3 MCHC 32.2 RDW 13.8 RDW Differential 44.8 H Plt Count 166 MPV 11.0 Immature Gran % (Auto) 0.000 Neut % (Auto) 50.1 Lymph % (Auto) 33.5 [place] % (Auto) 14.9 H Eos % (Auto) 1.0 Baso % (Auto) 0.5 Absolute Neuts (auto) 1.9 L Absolute Lymphs (auto) 1.28 Total Counted Not Reportable Sodium Potassium Chloride Carbon Dioxide Anion Gap BUN Creatinine Estim Creat Clear Calc Est GFR (MDRD) Af Amer Est GFR (MDRD) Non-Af BUN/Creatinine Ratio Glucose Calcium Phosphorus Magnesium Total Bilirubin AST ALT Alkaline Phosphatase Troponin I 0.046 H B-Natriuretic Peptide Total Protein Albumin Globulin Albumin/Globulin Ratio Urine Color Yellow Urine Clarity Clear Urine pH 7.0 Ur Specific [place] 1.010 Urine Protein 30 H Urine Glucose (UA) Normal Urine Ketones Negative Urine Occult Blood Negative Urine Nitrite Negative Urine Bilirubin Negative Urine Urobilinogen Normal Ur Leukocyte Esterase 25 H Urine RBC 0 SEEN Urine WBC 0 SEEN Ur Squamous Epith Cells 0 SEEN Amorphous Sediment 1+ Urine Bacteria 0 SEEN Urine Mucus 0 SEEN 12/25/18 12/25/18 12/25/18 03:40 03:40 03:40 WBC RBC Hgb Hct MCV MCH MCHC RDW RDW Differential Plt Count MPV Immature Gran % (Auto) Neut % (Auto) Lymph % (Auto) [place] % (Auto) Eos % (Auto) Baso % (Auto) Absolute Neuts (auto) Absolute Lymphs (auto) Total Counted Sodium 143 Potassium 3.1 L Chloride 106 Carbon Dioxide 27.0 Anion Gap 10 BUN 20 H Creatinine 0.66 Estim Creat Clear Calc 43.74 Est GFR (MDRD) Af Amer 112 Est GFR (MDRD) Non-Af 93 BUN/Creatinine Ratio 30.3 H Glucose 78 Calcium 9.0 Phosphorus 2.7 Magnesium 2.7 H Total Bilirubin AST ALT Alkaline Phosphatase Troponin I 0.031 B-Natriuretic Peptide Total Protein Albumin Globulin Albumin/Globulin Ratio Urine Color Urine Clarity Urine pH Ur Specific [place] Urine Protein Urine Glucose (UA) Urine Ketones Urine Occult Blood Urine Nitrite Urine Bilirubin Urine Urobilinogen Ur Leukocyte Esterase Urine RBC Urine WBC Ur Squamous Epith Cells Amorphous Sediment Urine Bacteria Urine Mucus Assessment/Plan This patient was seen in conjunction with SHABNAM Martinez. I have independently interviewed and examined the patient and reviewed pertinent historical, laboratory, and other data. Please refer to SHABNAM Martinez note for his patient's presentation, findings, and recommendations. I have reviewed and his note and concur with his documentation Patient complains of severe frontal headache, history of Parkinson's disease, admitted with unsteady gait, and falls. Patient was medicated with Tylenol. Events stable overnight. Vitals are stable. Physical Exam: Gen:AOx3, not pale, not jaundiced, mildly dehydrated CVS:HS I +II, regular, no murmurs RESP: Diminished at lung bases GI: Full, firm, nontender, no ballotable organs EXT:No edema Labs reviewed, potassium was 3.1, mild improvement in troponins. ASSESSMENT: 1. Recurrent falls 2. Hypokalemia 3. Acute headache/migraine 4. Mild indeterminant troponin 5. CAD 6. Hypertension 7. Hyperlipidemia 8. Parkinson's disease Plan: Replace potassium, repeat blood work in a.m. PT and OT to evaluate and treat Case management consulted for discharge planning to SNF Code Visit Inpatient E&M: 19219 Subs Hosp L2
[2018-12-25] MEDS: Pravastatin 80 MG Tablet PO (21:36)
[2018-12-25] MEDS: MELATONIN 10 MG TABLET 5 MG PO (21:36)
[2018-12-25] MEDS: 0.9% NaCl Peripheral Flush Adult/Peds IV (21:37)
[2018-12-26] VITALS (11 sets, daily range): BP systolic 133–160; BP diastolic 69–75; PULSE 56–62; RESP 16–18; TEMP 36.4–36.8; O2SAT 92–97
[2018-12-26] MEDS: oxyCODONE 5 MG Tablet PO (02:53)
[2018-12-26] MEDS: Carbidopa/Levodopa 25/100 Tablet PO ×2 (06:07→10:39)
[2018-12-26 08:30] LABS: Anion Gap 8 (5-15); BUN 16 mg/dL (7-18); Calcium,Total 9.1 mg/dL (8.5-10.1); Chloride 109 mmol/L (98-107); EST Glomerular Filtration Rate 87 mL/min (>60); Est Glom Filt Rate - Afr Amer 106 mL/min (>60); Estimated Creatinine Clearance 43.74 ml/min; Glucose 76 mg/dL (74-106); Potassium 4.7 mmol/L (3.5-5.1); Sodium Level 142 mmol/L (136-145)
[2018-12-26] MEDS: 0.9% NaCl Peripheral Flush Adult/Peds IV (09:46)
[2018-12-26] MEDS: Lisinopril 20 MG Tablet PO (10:38)
[2018-12-26] MEDS: FLUoxetine 20 MG Capsule 40 MG PO (10:39)
[2018-12-26] MEDS: buPROPion (XL) 300 MG TABLET.XL PO (10:39)
[2018-12-26] MEDS: Pantoprazole Sodium 40 MG Tablet PO (10:39)
[2018-12-26] MEDS: Enoxaparin 40 MG/0.4 ML Syringe SC (10:39)
[2018-12-26] MEDS: Aspirin 81 MG TAB.CHEW PO (10:39)
[2018-12-26] MEDS: Metoprolol(XL)Succ 100 MG Tablet PO (10:40)
[2018-12-26] MEDS: Amantadine 100 MG Capsule PO (10:45)
--- NOTE | 2018-12-26 12:27 | CASEMGMT ---
Patient and agree to SNF short term. AYLA explained that patient is not getting her qualifying stay so this will be private pay. AYLA gave them approximate costs of the facilities in the area. Patient's said they could afford it for about a week. He asked about [facility]. AYLA called Pari at [facility] and obtained private pay cost. AYLA told patient and her the updated information. They would like to go to [facility]. AYLA faxed referral and left a message with Pari with referral. Caroline [employer]
--- NOTE | 2018-12-26 13:17 | PCM.PROGNOTE ---
<Selvin Weiner - Last Filed: 12/26/18 13:17> Subjective: Pt states headache is worse today, with nausea, and requests additional migraine therapy. No vomiting. She is ambulating very poorly with her walker with posterior lean. She is reluctanctly considering SNF. Her strongly encourages her to go to skilled short term, and states him helping her at home is not enough. - Physical Exam General: Alert, Oriented x3, Cooperative HEENT: Atraumatic, PERRLA, EOMI, Normocephalic Neck: Supple, No JVD, Negative Carotid Bruits Lungs: Clear to auscultation, Normal air movement Cardiovascular: Regular rate, No murmurs Abdomen: Bowel Sounds Present, Soft, Non Tender Extremities: No edema, Capillary Refill Less than 3 Seconds Skin: No rashes, No breakdown Musculoskeletal: No Tenderness to Palpation of Joints or Extremities Neurological: Cranial nerves II-XII grossly intact Psych/Mental Status: Normal Affect, Appropriate, Alert and oriented to time, place, person, mood and affect Vital Signs Temp Pulse Resp BP Pulse Ox 97.6 F L 56 L 16 133/70 H 94 12/26/18 08:29 12/26/18 10:40 12/26/18 08:29 12/26/18 08:29 12/26/18 08:29 Oxygen Delivery Method Room Air Weight: 129 lb 10.109 oz Body Mass Index (BMI) 21.5 Intake and Output for Last 24 Hours 12/24/18 12/25/18 12/26/18 23:59 23:59 23:59 Intake Total 636 / 636 340 / 340 Output Total 250 / 250 1325 / 1325 Balance 386 / 386 -985 / -985 Laboratory Tests Past 24 Hrs 12/26/18 07:40 Sodium 142 Potassium 4.7 Chloride 109 H Carbon Dioxide 25.0 Anion Gap 8 BUN 16 Creatinine 0.70 Estim Creat Clear Calc 43.74 Est GFR (MDRD) Af Amer 106 Est GFR (MDRD) Non-Af 87 BUN/Creatinine Ratio 23.0 H Glucose 76 Calcium 9.1 Medical Necessity - Tobacco Use Smoking Status: Never smoker Assessment/Plan All Active Problems (Last Reviewed 11/18/18 @ 14:10 by Gale Villegas) Colon cancer (Resolved) Recurrent fall (Acute) 1. Recurrent falls with gait instability, worsened by Parkinson dz - PTOT. O/p follow up with neuro. Continue home parkinson medications. Pt likely needs placed. 2. Acute migraine - adding decadron 10 mg x1. 3. Hypokalemia 2/2 GI loss - resolved. 4. Indeterminate trop - no CP, 2nd trop neg. 5. hx CAD, htn, hld - prior stents. On beta juan, mekhi, statin, aspirin DVT ppx: lovenox DC planning: SNF placement likely. This patient was seen by Selvin Weiner PA-C under the supervision of Doctor Chris. <Kaylen Perez - Last Filed: 12/27/18 07:32> - Physical Exam Vital Signs Temp Pulse Resp BP Pulse Ox 97.9 F 61 16 158/69 H 92 12/26/18 14:30 12/26/18 15:00 12/26/18 14:30 12/26/18 14:30 12/26/18 14:30 Oxygen Delivery Method Room Air Weight: 58.8 kg Body Mass Index (BMI) 21.5 Intake and Output for Last 24 Hours 12/25/18 12/26/18 12/27/18 23:59 23:59 23:59 Intake Total 636 / 636 340 / 340 Output Total 250 / 250 1325 / 1325 Balance 386 / 386 -985 / -985 Laboratory Tests Past 24 Hrs 12/26/18 07:40 Sodium 142 Potassium 4.7 Chloride 109 H Carbon Dioxide 25.0 Anion Gap 8 BUN 16 Creatinine 0.70 Estim Creat Clear Calc 43.74 Est GFR (MDRD) Af Amer 106 Est GFR (MDRD) Non-Af 87 BUN/Creatinine Ratio 23.0 H Glucose 76 Calcium 9.1 Assessment/Plan This patient was seen in conjunction with SHABNAM Martinez. I have independently interviewed and examined the patient and reviewed pertinent historical, laboratory, and other data. Please refer to SHABNAM Martinez note for his patient's presentation, findings, and recommendations. I have reviewed and his note and concur with his documentation Headaches are on and off. She generally feels better. She will be discharged today to SNF. Vitals are stable. Physical Exam: Gen:AOx3, not pale, not jaundiced, mildly dehydrated CVS:HS I +II, regular, no murmurs RESP: Diminished at lung bases GI: Full, soft, nontender, no ballotable organs EXT:No edema Labs reviewed, potassium is normal ASSESSMENT: 1. Recurrent falls 2. Hypokalemia, resolved 3. Acute headache/migraine 4. Mild indeterminant troponins 5. CAD 6. Hypertension 7. Hyperlipidemia 8. Parkinson's disease Plan: Case management consulted for discharge planning to SNF Code Visit Inpatient E&M: [id number] Subs Hosp L2
--- NOTE | 2018-12-26 14:22 | PCM.TXEXTCAR ---
- Diet 12/25/18 00:52 Diet: Cardiac/Low Cholesterol - Routine Orders/Code Status Suppository Type: Dulcolax 10mg Suppository Frequency: Daily PRN Routine Lab Work: BMP - 5 days Code Status: Full Code - Therapies Physical Therapy: Eval and Treat Occupational Therapy: Eval and Treat - Problem/Diagnosis (1) Migraine Status: Chronic Current Visit: No (2) Recurrent fall Status: Acute Current Visit: Yes (3) Parkinson disease Status: Chronic Current Visit: Yes (4) CAD (coronary artery disease) Status: Chronic Current Visit: No (5) Compression fracture of body of thoracic vertebra Status: Chronic Current Visit: No (6) Gastroesophageal reflux disease Status: Chronic Current Visit: No (7) History of colon cancer Status: Chronic Current Visit: No (8) Hyperlipidemia Status: Chronic Current Visit: No (9) Hypertension Status: Chronic Current Visit: No - Allergies/Procedures Done in Hospital Allergies/Adverse Reactions: Allergies butorphanol tartrate [From Stadol] Allergy (Verified 12/24/18 21:04) Shortness of breath ketorolac tromethamine [From Toradol] Allergy (Verified 12/24/18 21:04) Shortness of breath nalbuphine HCl [From Nubain] Allergy (Verified 12/24/18 21:04) Shortness of breath sumatriptan [From Imitrex] Allergy (Verified 12/24/18 21:04) Shortness of breath sumatriptan succinate [From Imitrex] Allergy (Verified 12/24/18 21:04) Shortness of breath atorvastatin calcium [From Lipitor] Adverse Reaction (Verified 12/24/18 21:04) Other hurt all over head to toe Procedures: None - Type of Care/Length of Stay Estimated LOS: Convalescent Care Less Than 30 days Type of Care Needed: Skilled Rehab Potential: Fair Prognosis: Fair - Additional Orders/Day of Discharge Day of Discharge: 12/26/18 - Follow Up Care Primary Care Physician: America Torres DO [Primary Care Provider] - Please follow up with your Primary Care Physician in: 1-2 weeks Please Follow Up With: Your own neurologist When: 1-2 weeks
--- NOTE | 2018-12-26 14:59 | PCM.DC.SUM ---
<Selvin Weiner - Last Filed: 12/26/18 14:59> Discharge Date and Diagnosis Date of Admission: 12/25/18 Date of Discharge: 12/26/18 - Primary Discharge Diagnosis Active and Suspected Problems (Last Reviewed 11/18/18 @ 14:10 by Gale Villegas) Recurrent fall (Acute) secondary to worsening of underlying Parkinson's disease Acute migraine Hypokalemia secondary to GI loss Indeterminate troponin History of CAD Hypertension Hyperlipidemia - Secondary Discharge Diagnosis Chronic Problems (Last Reviewed 11/18/18 @ 14:10 by Gale Villegas) Coronary atherosclerosis of [place] coronary vessel (Chronic) Gastroesophageal reflux disease (Chronic) Pure hypercholesterolemia (Chronic) CAD (coronary artery disease) (Chronic) Migraine (Chronic) Hyperlipidemia (Chronic) Hypertension (Chronic) Compression fracture of body of thoracic vertebra (Chronic) History of colon cancer (Chronic) Parkinson disease (Chronic) Hospital Course and Treatment Imaging Results: RAD/Chest 1 View (Portable) IMPRESSION: No acute cardiopulmonary process. RAD/Abd Inc Decub and/or Erect IMPRESSION: Acute air-fluid levels in the colon without distention could be related to ileus or enteritis. Operations: colectomy Procedures: None Summary of Care Provided: Hospital course: The patient is a 73 year old F past medical history of severe Parkinson's, hypertension, CAD, hyperlipidemia, chronic migraines, who presented the emergency room with chief complaints of recurrent falls at home. She had several days of vomiting and was found to be hypokalemic and very tremulous and she had a very slightly indeterminate troponin. She was admitted to PCU. She was given potassium supplementation which normalized. The following day she reported migraine symptoms complaining of headache, nausea, visual disturbances. Ultimately she was started on Decadron migraine with good improvement. She remained very weak and with a great deal of difficulty ambulating with severe posterior lean. She was unable to feed herself due to her severe tremor. Her did not feel comfortable taking her home and providing care for her. assisted was recommended and the patient was agreeable. She was discharged to half-way in stable condition. She has outpatient neurologist for migraine and for Parkinson's. Recommended close follow-up with her Parkinson's doctor, she states she has an appointment in about 2 weeks which we encouraged her to keep. She will also need follow-up with her PCP in 1-2 weeks. This patient was seen by Selvin Weiner PA-C under the supervision of Doctor Chris. [] - Physical Exam General: Alert, Oriented x3, Cooperative HEENT: Atraumatic, PERRLA, EOMI, Normocephalic Neck: Supple, No JVD, Negative Carotid Bruits Lungs: Clear to auscultation, Normal air movement Cardiovascular: Regular rate, No murmurs Abdomen: Bowel Sounds Present, Soft, Non Tender Extremities: No edema, Capillary Refill Less than 3 Seconds Skin: No rashes, No breakdown Musculoskeletal: No Tenderness to Palpation of Joints or Extremities Neurological: Cranial nerves II-XII grossly intact, - - Severe upper extremity tremor Psych/Mental Status: Normal Affect, Appropriate Vital Signs Temp Pulse Resp BP Pulse Ox 97.9 F 62 16 158/69 H 92 12/26/18 14:30 12/26/18 14:30 12/26/18 14:30 12/26/18 14:30 12/26/18 14:30 Oxygen Delivery Method Room Air Weight: 129 lb 10.109 oz Body Mass Index (BMI) 21.5 Intake and Output for Last 24 Hours 12/24/18 12/25/18 12/26/18 23:59 23:59 23:59 Intake Total 636 / 636 340 / 340 Output Total 250 / 250 1325 / 1325 Balance 386 / 386 -985 / -985 Laboratory Tests Past 24 Hrs 12/26/18 07:40 Sodium 142 Potassium 4.7 Chloride 109 H Carbon Dioxide 25.0 Anion Gap 8 BUN 16 Creatinine 0.70 Estim Creat Clear Calc 43.74 Est GFR (MDRD) Af Amer 106 Est GFR (MDRD) Non-Af 87 BUN/Creatinine Ratio 23.0 H Glucose 76 Calcium 9.1 Discharge Diet: Low fat/ Low Cholesterol, 2000 mg Sodium Diet Discharge Activity: Return to Normal Activity Home Medications: Medications to take at Discharge buPROPion XL [Wellbutrin Xl] 300 mg PO DAILY #0 tablet.xl 02/15/15 Nitroglycerin [Nitrostat] 0.4 mg SUBLINGUAL Q5M PRN 03/12/18 Pravastatin [Pravachol] 80 mg PO QHS 03/12/18 Prochlorperazine Maleate [Compazine] 10 mg PO Q6H PRN PRN 03/12/18 Carbidopa/Levodopa 25/100 [Sinemet 25/100] 2 tab PO BID 05/20/18 Lisinopril 20 mg PO BID 10/07/18 Amantadine HCl [Amantadine] 100 mg PO BID 12/24/18 Aspirin [Aspirin, Baby] 81 mg PO DAILY 12/24/18 Cyproheptadine HCl 4 mg PO QHS PRN 12/24/18 Erenumab-Aooe [Aimovig Autoinjector] 70 mg SQ QMONTH 12/24/18 Fluoxetine HCl 80 mg PO DAILY 12/24/18 Melatonin 5 mg PO QHS 12/24/18 Metoprolol Succinate [Toprol Xl] 50 mg PO DAILY 12/24/18 Pantoprazole Sodium 40 mg PO DAILY 12/24/18 Acetaminophen [Tylenol Tablet] 650 mg PO Q6H PRN PRN tablet 12/26/18 Bisacodyl [Dulcolax] 10 mg RECTAL DAILY PRN PRN suppos. 12/26/18 Oxycodone-Aspirin 1 tab PO Q6H PRN PRN 2 Days #8 12/26/18 Following Prescrptions Were Given to Patient: Oxycodone-Aspirin 1 tab PO Q6H PRN PRN 2 Days #8 PRN Reason: Pain Primary Care Physician: Amercia Torres DO [Primary Care Provider] - Please follow up with your Primary Care Physician in: 1-2 weeks Please Follow Up With: Your own neurologist When: 1-2 weeks Disposition: Detention facility Minutes spent on discharge:: 40 Patient Condition:: Stable Medical Necessity - Tobacco Use Smoking Status: Never smoker Meaningful Use Info Meaningful Use Diagnoses (Choose all that apply): None applicable <ChrisNorton - Last Filed: 12/27/18 07:42> Discharge Date and Diagnosis - Secondary Discharge Diagnosis Chronic Problems (Last Reviewed 11/18/18 @ 14:10 by Gale Villegas) Coronary atherosclerosis of [place] coronary vessel (Chronic) Gastroesophageal reflux disease (Chronic) Pure hypercholesterolemia (Chronic) CAD (coronary artery disease) (Chronic) Migraine (Chronic) Hyperlipidemia (Chronic) Hypertension (Chronic) Compression fracture of body of thoracic vertebra (Chronic) History of colon cancer (Chronic) Parkinson disease (Chronic) Hospital Course and Treatment Summary of Care Provided: This patient was seen in conjunction with Selvin Regine, PA. I have independently interviewed and examined the patient and reviewed pertinent historical, laboratory, and other data. Please refer to SHABNAM Martinez note for his patient's presentation, findings, and recommendations. I have reviewed and his note and concur with his documentation. 73-year-old patient with past medical history of Parkinson's disease, gait imbalance, hypertension, CAD, hyperlipidemia who was admitted to the emergency department after having recurrent falls at home and having vomiting. Her vomiting was resolved. She was found to be hypokalemic, that was replaced. Patient over the course of his stay in the hospital complained of recurrent headaches, she has allergy to Imitrex, it improved with Decadron. He was seen by PT and OT, and skilled for subacute care. On the day of discharge, she felt improved. Had some slight headache, improved with Decadron given earlier. Physical exam: GEN: Pale, not jaundiced, well hydrated CVS:HS I +II, regular, no murmurs RESP: CTA ABD: BS present, soft, nontender, no palpable organs. 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, very tremulous in all extremities, - Physical Exam Vital Signs Temp Pulse Resp BP Pulse Ox 97.9 F 61 16 158/69 H 92 12/26/18 14:30 12/26/18 15:00 12/26/18 14:30 12/26/18 14:30 12/26/18 14:30 Oxygen Delivery Method Room Air Weight: 58.8 kg Body Mass Index (BMI) 21.5 Intake and Output for Last 24 Hours 12/25/18 12/26/18 12/27/18 23:59 23:59 23:59 Intake Total 636 / 636 340 / 340 Output Total 250 / 250 1325 / 1325 Balance 386 / 386 -985 / -985 Laboratory Tests Past 24 Hrs 12/26/18 07:40 Sodium 142 Potassium 4.7 Chloride 109 H Carbon Dioxide 25.0 Anion Gap 8 BUN 16 Creatinine 0.70 Estim Creat Clear Calc 43.74 Est GFR (MDRD) Af Amer 106 Est GFR (MDRD) Non-Af 87 BUN/Creatinine Ratio 23.0 H Glucose 76 Calcium 9.1 Code Visit Inpatient E&M: 33095 Disch Hosp
--- NOTE | 2018-12-26 15:06 | DS.PCM_ITS ---
<Selvin Weiner - Last Filed: 12/26/18 14:59> Discharge Date and Diagnosis Date of Admission: 12/25/18 Date of Discharge: 12/26/18 - Primary Discharge Diagnosis Active and Suspected Problems (Last Reviewed 11/18/18 @ 14:10 by Gale Villegas) Recurrent fall (Acute) secondary to worsening of underlying Parkinson's disease Acute migraine Hypokalemia secondary to GI loss Indeterminate troponin History of CAD Hypertension Hyperlipidemia - Secondary Discharge Diagnosis Chronic Problems (Last Reviewed 11/18/18 @ 14:10 by Gale Villegas) Coronary atherosclerosis of [place] coronary vessel (Chronic) Gastroesophageal reflux disease (Chronic) Pure hypercholesterolemia (Chronic) CAD (coronary artery disease) (Chronic) Migraine (Chronic) Hyperlipidemia (Chronic) Hypertension (Chronic) Compression fracture of body of thoracic vertebra (Chronic) History of colon cancer (Chronic) Parkinson disease (Chronic) Hospital Course and Treatment Imaging Results: RAD/Chest 1 View (Portable) IMPRESSION: No acute cardiopulmonary process. RAD/Abd Inc Decub and/or Erect IMPRESSION: Acute air-fluid levels in the colon without distention could be related to ileus or enteritis. Operations: colectomy Procedures: None Summary of Care Provided: Hospital course: The patient is a 73 year old F past medical history of severe Parkinson's, hypertension, CAD, hyperlipidemia, chronic migraines, who presented the emergency room with chief complaints of recurrent falls at home. She had several days of vomiting and was found to be hypokalemic and very tremulous and she had a very slightly indeterminate troponin. She was admitted to PCU. She was given potassium supplementation which normalized. The following day she reported migraine symptoms complaining of headache, nausea, visual disturbances. Ultimately she was started on Decadron migraine with good improvement. She remained very weak and with a great deal of difficulty ambulating with severe posterior lean. She was unable to feed herself due to her severe tremor. Her did not feel comfortable taking her home and providing care for her. prison was recommended and the patient was agreeable. She was discharged to residential in stable condition. She has outpatient neurologist for migraine and for Parkinson's. Recommended close follow-up with her Parkinson's doctor, she states she has an appointment in about 2 weeks which we encouraged her to keep. She will also need follow-up with her PCP in 1-2 weeks. This patient was seen by Selvin Weiner PA-C under the supervision of Doctor Chris. [] - Physical Exam General: Alert, Oriented x3, Cooperative HEENT: Atraumatic, PERRLA, EOMI, Normocephalic Neck: Supple, No JVD, Negative Carotid Bruits Lungs: Clear to auscultation, Normal air movement Cardiovascular: Regular rate, No murmurs Abdomen: Bowel Sounds Present, Soft, Non Tender Extremities: No edema, Capillary Refill Less than 3 Seconds Skin: No rashes, No breakdown Musculoskeletal: No Tenderness to Palpation of Joints or Extremities Neurological: Cranial nerves II-XII grossly intact, - - Severe upper extremity tremor Psych/Mental Status: Normal Affect, Appropriate Vital Signs Temp Pulse Resp BP Pulse Ox 97.9 F 62 16 158/69 H 92 12/26/18 14:30 12/26/18 14:30 12/26/18 14:30 12/26/18 14:30 12/26/18 14:30 Oxygen Delivery Method Room Air Weight: 129 lb 10.109 oz Body Mass Index (BMI) 21.5 Intake and Output for Last 24 Hours 12/24/18 12/25/18 12/26/18 23:59 23:59 23:59 Intake Total 636 / 636 340 / 340 Output Total 250 / 250 1325 / 1325 Balance 386 / 386 -985 / -985 Laboratory Tests Past 24 Hrs 12/26/18 07:40 Sodium 142 Potassium 4.7 Chloride 109 H Carbon Dioxide 25.0 Anion Gap 8 BUN 16 Creatinine 0.70 Estim Creat Clear Calc 43.74 Est GFR (MDRD) Af Amer 106 Est GFR (MDRD) Non-Af 87 BUN/Creatinine Ratio 23.0 H Glucose 76 Calcium 9.1 Discharge Diet: Low fat/ Low Cholesterol, 2000 mg Sodium Diet Discharge Activity: Return to Normal Activity Home Medications: Medications to take at Discharge buPROPion XL [Wellbutrin Xl] 300 mg PO DAILY #0 tablet.xl 02/15/15 Nitroglycerin [Nitrostat] 0.4 mg SUBLINGUAL Q5M PRN 03/12/18 Pravastatin [Pravachol] 80 mg PO QHS 03/12/18 Prochlorperazine Maleate [Compazine] 10 mg PO Q6H PRN PRN 03/12/18 Carbidopa/Levodopa 25/100 [Sinemet 25/100] 2 tab PO BID 05/20/18 Lisinopril 20 mg PO BID 10/07/18 Amantadine HCl [Amantadine] 100 mg PO BID 12/24/18 Aspirin [Aspirin, Baby] 81 mg PO DAILY 12/24/18 Cyproheptadine HCl 4 mg PO QHS PRN 12/24/18 Erenumab-Aooe [Aimovig Autoinjector] 70 mg SQ QMONTH 12/24/18 Fluoxetine HCl 80 mg PO DAILY 12/24/18 Melatonin 5 mg PO QHS 12/24/18 Metoprolol Succinate [Toprol Xl] 50 mg PO DAILY 12/24/18 Pantoprazole Sodium 40 mg PO DAILY 12/24/18 Acetaminophen [Tylenol Tablet] 650 mg PO Q6H PRN PRN tablet 12/26/18 Bisacodyl [Dulcolax] 10 mg RECTAL DAILY PRN PRN suppos. 12/26/18 Oxycodone-Aspirin 1 tab PO Q6H PRN PRN 2 Days #8 12/26/18 Following Prescrptions Were Given to Patient: Oxycodone-Aspirin 1 tab PO Q6H PRN PRN 2 Days #8 PRN Reason: Pain Primary Care Physician: America Torres DO [Primary Care Provider] - Please follow up with your Primary Care Physician in: 1-2 weeks Please Follow Up With: Your own neurologist When: 1-2 weeks Disposition: Shelter facility Minutes spent on discharge:: 40 Patient Condition:: Stable Medical Necessity - Tobacco Use Smoking Status: Never smoker Meaningful Use Info Meaningful Use Diagnoses (Choose all that apply): None applicable <ChrisMonroe - Last Filed: 12/27/18 07:42> Discharge Date and Diagnosis - Secondary Discharge Diagnosis Chronic Problems (Last Reviewed 11/18/18 @ 14:10 by Gale Villegas) Coronary atherosclerosis of [place] coronary vessel (Chronic) Gastroesophageal reflux disease (Chronic) Pure hypercholesterolemia (Chronic) CAD (coronary artery disease) (Chronic) Migraine (Chronic) Hyperlipidemia (Chronic) Hypertension (Chronic) Compression fracture of body of thoracic vertebra (Chronic) History of colon cancer (Chronic) Parkinson disease (Chronic) Hospital Course and Treatment Summary of Care Provided: This patient was seen in conjunction with Selvin Regine, PA. I have independently interviewed and examined the patient and reviewed pertinent historical, laboratory, and other data. Please refer to SHABNAM Martinez note for his patient's presentation, findings, and recommendations. I have reviewed and his note and concur with his documentation. 73-year-old patient with past medical history of Parkinson's disease, gait imbalance, hypertension, CAD, hyperlipidemia who was admitted to the emergency department after having recurrent falls at home and having vomiting. Her vomiting was resolved. She was found to be hypokalemic, that was replaced. Patient over the course of his stay in the hospital complained of recurrent headaches, she has allergy to Imitrex, it improved with Decadron. He was seen by PT and OT, and skilled for subacute care. On the day of discharge, she felt improved. Had some slight headache, improved with Decadron given earlier. Physical exam: GEN: Pale, not jaundiced, well hydrated CVS:HS I +II, regular, no murmurs RESP: CTA ABD: BS present, soft, nontender, no palpable organs. 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, very tremulous in all extremities, - Physical Exam Vital Signs Temp Pulse Resp BP Pulse Ox 97.9 F 61 16 158/69 H 92 12/26/18 14:30 12/26/18 15:00 12/26/18 14:30 12/26/18 14:30 12/26/18 14:30 Oxygen Delivery Method Room Air Weight: 58.8 kg Body Mass Index (BMI) 21.5 Intake and Output for Last 24 Hours 12/25/18 12/26/18 12/27/18 23:59 23:59 23:59 Intake Total 636 / 636 340 / 340 Output Total 250 / 250 1325 / 1325 Balance 386 / 386 -985 / -985 Laboratory Tests Past 24 Hrs 12/26/18 07:40 Sodium 142 Potassium 4.7 Chloride 109 H Carbon Dioxide 25.0 Anion Gap 8 BUN 16 Creatinine 0.70 Estim Creat Clear Calc 43.74 Est GFR (MDRD) Af Amer 106 Est GFR (MDRD) Non-Af 87 BUN/Creatinine Ratio 23.0 H Glucose 76 Calcium 9.1 Code Visit Inpatient E&M: 58469 Disch Hosp
--- NOTE | 2018-12-26 15:53 | CASEMGMT ---
AYLA told patient and her that pre Pari at [facility] they will have some additional expense for the therapy, but SW cannot give them a number. They were fine with this. Caroline AL MSW
== END 2018-12-26 16:45 | disposition skilled nursing facility (03) | DRG 57 ==
LOC: ED 21:47 → PCU 12-25 00:16
PROVIDERS: Physician Assistant; Admitting Provider Internal Medicine; Emergency Provider Emergency Medicine; Family Provider Internal Medicine; PCP Internal Medicine; Visit Provider Internal Medicine
DX: G20 Parkinson's disease (principal); E87.6 Hypokalemia; R29.6 Repeated falls; G43.909 Migraine, unspecified, not intractable, without status migrainosus; I25.10 Atherosclerotic heart disease of native coronary artery without angina pectoris; I10 Essential (primary) hypertension; R00.1 Bradycardia, unspecified; E78.5 Hyperlipidemia, unspecified; K21.9 Gastro-esophageal reflux disease without esophagitis; Z85.038 Personal history of other malignant neoplasm of large intestine; Z95.5 Presence of coronary angioplasty implant and graft; Z90.49 Acquired absence of other specified parts of digestive tract
CPT/HCPCS: 36415; 71045; 74019; 80048; 80053; 81001; 83735; 83880; 84100; 84484; 85025; 93005; 97162; 97166; 99285; J7030; J7050; A4216